=== PATIENT | male | born 1955 | race Caucasian/White ===

== ENCOUNTER 2017-11-30 06:45 | Day surgery (SDC) | payer BC ==
[2017-11-29 12:42] VITALS: BMI 32.4
[2017-11-30] MEDS ORDERED: ETOMIDATE 20 MG/10 ML AMPUL IVPUSH ONE (08:16)
[2017-11-30] MEDS ORDERED: LIDOCAINE HCL/PF 2% SDV 5ML VIAL ONE (08:16)
[2017-11-30] MEDS ORDERED: PROPOFOL 20 ML ONE ×2 (08:16)
[2017-11-30 08:50] VITALS: TEMP 97.6
[2017-11-30 09:44] VITALS: BP 143/75; PULSE 82
--- NOTE | 2017-12-04 14:17 | PATH ---
Surgical Pathology Report Patient Name: FAWN MADRID [facility]. Rec. #: [id number] /Age/Gender: 1955 (Age: 61) / M Account: [id number] Location: U-ENDOSCOPY Taken: 11/30/2017 Received: 11/30/2017 Reported: 12/04/2017 Physicians: Lyndsay Barrow M.D. Specimen(s) Received A: BX SECOND PORTION DUODENUM AND BULB B: BX GASTRIC ANTRUM C: RECTAL POLYP D: SIGMOID COLON POLYP Clinical History Gastric metaplasia, colon cancer screening Postoperative diagnosis: Gastritis, duodenitis, rectal and sigmoid polyps Final Diagnosis A. DUODENUM, SECOND PORTION AND BULB, BIOPSY: DUODENAL MUCOSA WITH MILD CHRONIC DUODENITIS. B. GASTRIC ANTRUM, BIOPSY: GASTRIC MUCOSA WITH MILD CHRONIC GASTRITIS AND LYMPHOID AGGREGATES. POSITIVE FOR INTESTINAL METAPLASIA. IMMUNOSTAIN IS NEGATIVE FOR H. PYLORI ORGANISMS. C. RECTAL POLYP, POLYPECTOMY: HYPERPLASTIC POLYP. D. SIGMOID COLON POLYP, POLYPECTOMY: TUBULAR ADENOMA. Electronically Signed Asim Jeter M.D. Gross Description A. Received in formalin, labeled "biopsy second portion of duodenum and bulb" are 3 mariscal, irregular portions of soft tissue averaging 0.3 cm. in greatest dimension. The specimens are submitted in toto in one cassette. B. Received in formalin, labeled "biopsy gastric antrum" are 6 mariscal, irregular portions of soft tissue ranging from 0.2-0.4 cm. in greatest dimension. The specimens are submitted in toto in one cassette. C. Received in formalin, labeled "biopsy rectal polyp" is a mariscal, irregular portion of soft tissue measuring 0.4 cm. in greatest dimension. The specimen is submitted in toto in one cassette. D. Received in formalin, labeled "biopsy sigmoid colon polyp" are 3 mariscal, irregular portions of soft tissue ranging from 0.1-0.4 cm. in greatest dimension. The specimens are submitted in toto in one cassette. 11/30/201711/30/2017
== END 2017-11-30 10:30 | disposition home or self-care (01) ==
LOC: JASU-ENDO 06:45
PROVIDERS: ATTEND Internal Medicine Gastroenterology
PROC: 0DBN8ZX Excision of Sigmoid Colon, Via Natural or Artificial Opening Endoscopic, Diagnostic (ICD-10-PCS; 2017-11-30)
PROC: 0DB98ZX Excision of Duodenum, Via Natural or Artificial Opening Endoscopic, Diagnostic (ICD-10-PCS; 2017-11-30)
PROC: 0DB68ZX Excision of Stomach, Via Natural or Artificial Opening Endoscopic, Diagnostic (ICD-10-PCS; 2017-11-30)
PROC: 0DBP8ZX Excision of Rectum, Via Natural or Artificial Opening Endoscopic, Diagnostic (ICD-10-PCS; principal; 2017-11-30 08:00)
DX: Z12.11 Encounter for screening for malignant neoplasm of colon (principal); K62.1 Rectal polyp; D12.5 Benign neoplasm of sigmoid colon; K29.70 Gastritis, unspecified, without bleeding; K29.80 Duodenitis without bleeding
CPT/HCPCS: 82962; 88305-TC; 88342-TC

== ENCOUNTER 2021-08-30 16:31 | Emergency (ER) | payer OTHER, BC ==
[2021-08-30 16:50] VITALS: BP 150/73; PULSE 74; TEMP 97.5; BMI 41.7
[2021-08-30] MEDS ORDERED: ACETAMINOPHEN 1000 MG/100 ML BAG IVPB ONE (16:51)
[2021-08-30] MEDS ORDERED: morphine CARPU-JECT 4 MG/1 ML DISP.SYRIN IVPUSH ONE (17:10)
[2021-08-30] MEDS ORDERED: morphine SULFATE 4 MG/ML VIAL ONE (17:32)
[2021-08-30] MEDS ORDERED: ACETAMINOPHEN INJECTION 100 ML IVPB ONE (17:33)
[2021-08-30 17:45] LABS: BASO % 0.2 % (0-2.0); EOS % 0.9 % (0-4.5); HEMATOCRIT 39.1 % (35.4-49); MCH 30.9 pg (25.7-33.7); MCHC 33.2 g/dl (32.0-35.9); MEAN CELL VOLUME 93.3 fl (80-96); MEAN PLT VOLUME 8.1 fl (7.5-11.1); MONO % 7.3 % (3.8-10.2); NEUT % 83.6 % (42.8-82.8); PLATELET COUNT 195 10^3/uL (134-434); RBC 4.19 M/mm3 (4.00-5.60); RDW 14.6 % (11.9-15.9); WHITE BLOOD COUNT 10.1 K/mm3 (4.0-10.0)
[2021-08-30 18:01] LABS: INR 1.02 (0.83-1.09); PROTHROMBIN TIME (PATIENT) 11.7 SEC (9.7-13.0)
[2021-08-30 18:03] LABS: ACTIVATED PTT 35.2 SECONDS (25.2-36.5)
[2021-08-30 18:09] LABS: CALCIUM 8.7 mg/dL (8.5-10.1)
[2021-08-30 18:10] LABS: ALBUMIN 3.5 g/dl (3.4-5.0); BLOOD UREA NITROGEN 21.3 mg/dL (7-18)
[2021-08-30 18:13] LABS: CREATININE 1.1 mg/dL (0.55-1.3)
[2021-08-30 18:15] LABS: BILIRUBIN,TOTAL 0.4 mg/dL (0.2-1); TOT PROT 7.1 g/dl (6.4-8.2)
== END 2021-08-30 19:02 | disposition home or self-care (01) ==
LOC: JER 16:31
PROC: 3E0333Z Introduction of Anti-inflammatory into Peripheral Vein, Percutaneous Approach (ICD-10-PCS; principal; 2021-08-30)
PROC: 3E033NZ Introduction of Analgesics, Hypnotics, Sedatives into Peripheral Vein, Percutaneous Approach (ICD-10-PCS; 2021-08-30)
DX: S42.202A Unspecified fracture of upper end of left humerus, initial encounter for closed fracture (principal); W01.0XXA Fall on same level from slipping, tripping and stumbling without subsequent striking against object, initial encounter
CPT/HCPCS: 36415; 70450-TC; 71101-TC-LT-FY; 72125-TC; 73030-TC-LT-FY; 73060-TC-LT-FY; 80053; 85025; 85610; 85730; 86850; 86900; 86901; 96374; 96375; 99285-25

== ENCOUNTER 2022-07-06 04:15 | Day surgery (SDC) | payer OTHER, BC ==
[2022-06-29 15:55] VITALS: BMI 31.0
[2022-07-06] MEDS ORDERED: HEPARIN NA (PORCINE) 5,000 UNITS/ML 1ML VIAL ONE ×2 (07:28→09:11)
[2022-07-06] MEDS ORDERED: LIDOCAINE HCL 1%, 10 MG/ML (20ML VIAL) ONE (07:29)
[2022-07-06] MEDS ORDERED: LIDOCAINE HCL/PF 2% SDV 5ML VIAL ONE (09:11)
[2022-07-06] MEDS ORDERED: PROPOFOL 40 ML ONE (09:11)
[2022-07-06] MEDS ORDERED: FENTANYL CITRATE/PF 50 MCG/ML VIAL ONE (09:11)
[2022-07-06] MEDS ORDERED: MIDAZOLAM HCL 2 MG/2 ML SINGLE DOSE VIAL ONE (09:12)
[2022-07-06] MEDS ORDERED: ceFAZolin SODIUM 1 GM VIAL ONE (09:33)
[2022-07-06] MEDS ORDERED: ceFAZolin SODIUM 1 GM VIAL IVPB ONE (09:34)
[2022-07-06] MEDS ORDERED: LIDOCAINE HCL 1%, 10 MG/ML (20ML VIAL) INF ONE ×2 (09:34)
[2022-07-06] MEDS ORDERED: CLOPIDOGREL BISULFATE 75 MG TABLET (FP) PO ONE (10:10)
[2022-07-06] MEDS ORDERED: ONDANSETRON 4 MG/2 ML VIAL IVPUSH PRN (10:17)
[2022-07-06] MEDS ORDERED: oxyCODONE HCL 5 MG TABLET PO PRN (10:17)
[2022-07-06] MEDS ORDERED: LACTATED RINGERS SOLUTION 1,000 ML IV SCH (10:30)
[2022-07-06 11:57] VITALS: RESP 18
[2022-07-06 13:52] VITALS: BP 137/60; PULSE 70; TEMP 97.6
== END 2022-07-06 14:00 | disposition home or self-care (01) ==
LOC: JASU-SURG 04:15
PROVIDERS: ATTEND Surgery Vascular Surgery
PROC: 047S3ZZ Dilation of Left Posterior Tibial Artery, Percutaneous Approach (ICD-10-PCS; 2022-07-06)
PROC: 047L3ZZ Dilation of Left Femoral Artery, Percutaneous Approach (ICD-10-PCS; principal; 2022-07-06 09:00)
DX: I73.9 Peripheral vascular disease, unspecified (principal); L97.929 Non-pressure chronic ulcer of unspecified part of left lower leg with unspecified severity
CPT/HCPCS: 37225; 37229; C1885; 76000-TC-FY; 82962; 94760; C1760; J1644

== ENCOUNTER 2024-02-08 04:55 | Day surgery (SDC) | payer OTHER, BC ==
[2024-02-05 12:53] VITALS: BMI 31.7
[2024-02-08 12:08] VITALS: RESP 18
[2024-02-08] MEDS: BUPIVACAINE HCL/PF 0.5% (5MG/ML) 10 ML VIAL PNB ONE (14:19)
[2024-02-08 15:07] VITALS: BP 144/70; PULSE 78; TEMP 98.4
== END 2024-02-08 15:30 | disposition home or self-care (01) ==
LOC: JASU-SURG 04:55
PROVIDERS: ATTEND Pain Medicine Pain Medicine
PROC: 3E0T33Z Introduction of Anti-inflammatory into Peripheral Nerves and Plexi, Percutaneous Approach (ICD-10-PCS; 2024-02-08)
PROC: 3E0T3BZ Introduction of Anesthetic Agent into Peripheral Nerves and Plexi, Percutaneous Approach (ICD-10-PCS; principal; 2024-02-08 13:00)
DX: M47.812 Spondylosis without myelopathy or radiculopathy, cervical region (principal)
CPT/HCPCS: 76000-TC-FY

== ENCOUNTER 2024-03-17 04:33 | Day surgery (SDC) | payer OTHER, BC ==
[2024-03-06 14:41] VITALS: BMI 34.4
[2024-03-17 12:09] VITALS: TEMP 98.3
[2024-03-17 12:25] VITALS: RESP 20
[2024-03-17 13:31] VITALS: BP 148/59; PULSE 76
== END 2024-03-17 13:22 | disposition home or self-care (01) ==
LOC: JASU-ENDO 04:33
PROVIDERS: ATTEND Internal Medicine Gastroenterology
PROC: 0DB98ZX Excision of Duodenum, Via Natural or Artificial Opening Endoscopic, Diagnostic (ICD-10-PCS; 2024-03-17)
PROC: 0DB78ZX Excision of Stomach, Pylorus, Via Natural or Artificial Opening Endoscopic, Diagnostic (ICD-10-PCS; 2024-03-17)
PROC: 0DB68ZX Excision of Stomach, Via Natural or Artificial Opening Endoscopic, Diagnostic (ICD-10-PCS; 2024-03-17)
PROC: 0DBL8ZX Excision of Transverse Colon, Via Natural or Artificial Opening Endoscopic, Diagnostic (ICD-10-PCS; principal; 2024-03-17 10:00)
DX: Z12.11 Encounter for screening for malignant neoplasm of colon (principal); D12.3 Benign neoplasm of transverse colon; K64.8 Other hemorrhoids; K57.30 Diverticulosis of large intestine without perforation or abscess without bleeding; K29.40 Chronic atrophic gastritis without bleeding; Z87.19 Personal history of other diseases of the digestive system
CPT/HCPCS: 82962; 88305-TC; 88342-TC

== ENCOUNTER 2024-09-08 05:56 | Day surgery (SDC) | payer OTHER, BC ==
[2024-09-02 13:13] VITALS: BMI 32.5
[2024-09-08] MEDS ORDERED: VANCOMYCIN 1,000 MG VIAL (RESTRICTED TO ID ONLY) ONE ×2 (07:20→11:23)
[2024-09-08] MEDS ORDERED: TRANEXAMIC ACID 1000 MG/10 ML VIAL ONE (07:20)
[2024-09-08] MEDS ORDERED: PROPOFOL 40 ML ONE (07:41)
[2024-09-08] MEDS ORDERED: SUCCINYLCHOLINE CHLORIDE 200 MG/10 ML SYRINGE ONE (07:41)
[2024-09-08] MEDS ORDERED: MIDAZOLAM HCL 2 MG/2 ML SINGLE DOSE VIAL ONE (07:42)
[2024-09-08] MEDS ORDERED: ROPIVACAINE HCL/PF 100 MG/20 ML VIAL ONE (07:45)
[2024-09-08] MEDS ORDERED: DEXAMETHASONE SOD PHOSPHATE 10 MG/1 ML VIAL ONE (07:45)
[2024-09-08] MEDS ORDERED: ROCURONIUM BROMIDE 50 MG/5 ML VIAL ONE (08:40)
[2024-09-08] MEDS ORDERED: ONDANSETRON 4 MG/2 ML VIAL IVPUSH PRN ×2 (09:16→12:11)
[2024-09-08] MEDS ORDERED: oxyCODONE HCL 5 MG TABLET PO PRN (09:16)
[2024-09-08] MEDS ORDERED: LACTATED RINGERS SOLUTION 1,000 ML IV SCH ×2 (09:30→12:15)
[2024-09-08] MEDS ORDERED: MAG HYDROX/AL HYDROX/SIMETH 30 ML UNIT-DOSE CUP PO PRN (12:11)
[2024-09-08] MEDS ORDERED: FAMOTIDINE 20 MG TABLET PO PRN (12:15)
[2024-09-08] MEDS: CEFAZOLIN 2 GM/D5W 2 GRAM/50 ML ML IVPB SCH (17:30)
[2024-09-08] MEDS: ACETAMINOPHEN 1000 MG/100 ML BAG IVPB PRN (18:19)
[2024-09-08] MEDS: FUROSEMIDE 40 MG/4 ML INJECTABLE VIAL IVPUSH ONE (18:52)
[2024-09-08] MEDS: VANCOMYCIN/WATER FOR INJ (PEG) 1,000 MG/200 ML BAG IVPB ONE (20:45)
[2024-09-08] MEDS ORDERED: INSULIN ASPART SLIDING SCALE (NOVOLOG) 1 VIAL SQ ONE (21:25)
[2024-09-08] MEDS: INSULIN (LEVEMIR) 100 UNITS/ML UNITS SQ SCH (21:35)
[2024-09-08] MEDS: DORZOLAMIDE HCL/TIMOLOL OPHTHALMIC SOLUTION 10 ML BOTTLE OU SCH (21:35)
[2024-09-08] MEDS: METOPROLOL TARTRATE 50 MG TABLET (FP) PO SCH (21:36)
[2024-09-08] MEDS: ATORVASTATIN CA 40 MG TABLET (FP) PO SCH (21:36)
[2024-09-08] MEDS: SENNOSIDES/DOCUSATE COMBO (SENNA PLUS) TABLET (UD) PO SCH (21:37)
[2024-09-08] MEDS: PRAMIPEXOLE DIHYDROCHLORIDE 0.25 MG TABLET PO SCH (21:37)
[2024-09-08] MEDS: GABAPENTIN 300 MG CAPSULE PO SCH (21:37)
[2024-09-08] MEDS: INSULIN ASPART SLIDING SCALE (NOVOLOG) 1 VIAL SQ SCH (21:37)
[2024-09-08] MEDS: BRIMONIDINE TARTRATE 0.2% OPHTHALMIC 5 ML BOTTLE OS SCH (21:50)
[2024-09-08] MEDS: METHAZOLAMIDE 50 MG TABLET PO SCH (21:50)
[2024-09-09] MEDS: ACETAMINOPHEN 1000 MG/100 ML BAG IVPB ONE (01:19)
[2024-09-09] MEDS ORDERED: INSULIN ASPART SLIDING SCALE (NOVOLOG) 1 VIAL SQ ONE (06:32)
[2024-09-09 09:23] LABS: ALBUMIN 3.3 g/dl (3.4-5.0); BASO % 0.2 % (0-2.0); BILIRUBIN,TOTAL 0.3 mg/dl (0.2-1); CALCIUM 8.4 mg/dl (8.5-10.1); CREATININE 1.3 mg/dl (0.6-1.3); HEMATOCRIT 31.5 % (35.4-49); HEMOGLOBIN 9.9 GM/dL (11.7-16.9); LYMPH % 4.1 % (8-40); MCH 27.3 pg (25.7-33.7); MCHC 31.4 g/dl (32.0-35.9); MEAN CELL VOLUME 86.7 fl (80-96); MEAN PLT VOLUME 8.4 fl (7.5-11.1); MONO % 11.1 % (3.8-10.2); NEUT % 84.6 % (42.8-82.8); PLATELET COUNT 200 10^3/uL (134-434); POTASSIUM 4.2 mmol/L (3.5-5.1); RBC 3.64 M/mm3 (4.00-5.60); RDW 16.4 % (11.9-15.9); TOT PROT 5.7 g/dl (6.4-8.2)
[2024-09-09] MEDS: PANTOPRAZOLE 40 MG TABLET PO SCH (09:35)
[2024-09-09] MEDS: LOSARTAN POTASSIUM 50 MG TABLET PO SCH (09:35)
[2024-09-09] MEDS: EMPAGLIFLOZIN (JARDIANCE) 10 MG TABLET PO SCH (09:35)
[2024-09-09] MEDS: MULTIVITAMINS (DAILY MVI) TABLET (FP) PO SCH (09:35)
[2024-09-09] MEDS: ASPIRIN COATED 81 MG TABLET.EC PO SCH (09:35)
[2024-09-09] MEDS: PILOCARPINE 1% OPHTHALMIC SOLUTION 15 ML BOTTLE OS SCH (09:43)
[2024-09-09] MEDS: PATIENT'S OWN MEDICATION (NON-FORMULARY) (Brimonidine Tartrate/Timolol [Brimonidine-Timolo OS SCH (09:50)
[2024-09-09] MEDS ORDERED: PILOCARPINE 1% OPHTHALMIC SOLUTION 15 ML BOTTLE OS SCH (10:00)
[2024-09-09] MEDS ORDERED: NIFEdipine E.R. 30 MG TABLET PO SCH (10:00)
[2024-09-09] MEDS ORDERED: PILOCARPINE 1% OS SCH (10:00)
[2024-09-09] MEDS: amLODIPine BESYLATE 5 MG TABLET (FP) PO SCH (11:49)
[2024-09-09] MEDS: FUROSEMIDE 40 MG/4 ML INJECTABLE VIAL IVPUSH ONE (12:15)
[2024-09-09] MEDS: ENOXAPARIN NA (PORCINE) 100 MG/1 ML DISP.SYRIN SQ SCH (13:51)
[2024-09-09] MEDS ORDERED: ACETAMINOPHEN 1000 MG/100 ML BAG IVPB PRN (16:54)
[2024-09-09] MEDS ORDERED: MECLIZINE HCL 12.5 MG TABLET PO PRN (16:58)
[2024-09-09] MEDS: oxyCODONE HCL 5 MG TABLET PO PRN (18:54)
[2024-09-09] MEDS: GABAPENTIN 100 MG CAPSULE PO SCH (21:58)
[2024-09-09] MEDS: PATIENT'S OWN MEDICATION (NON-FORMULARY) (Linagliptin/Metformin Hcl [Jentadueto 2.5 Mg-100 PO SCH (23:32)
[2024-09-10 08:53] LABS: CALCIUM 8.6 mg/dl (8.5-10.1); CREATININE 1.3 mg/dl (0.6-1.3); POTASSIUM 3.5 mmol/L (3.5-5.1)
[2024-09-10] MEDS: ENOXAPARIN NA (PORCINE) 40 MG/0.4 ML DISP.SYRIN SQ SCH (09:56)
[2024-09-10 11:06] LABS: BASO % 0.1 % (0-2.0); EOS % 0.2 % (0-4.5); HEMATOCRIT 29.3 % (35.4-49); HEMOGLOBIN 9.1 GM/dL (11.7-16.9); LYMPH % 5.3 % (8-40); MCH 27.1 pg (25.7-33.7); MEAN CELL VOLUME 87.6 fl (80-96); MONO % 12.9 % (3.8-10.2); NEUT % 81.5 % (42.8-82.8); PLATELET COUNT 205 10^3/uL (134-434); RBC 3.35 M/mm3 (4.00-5.60); RDW 16.7 % (11.9-15.9); WHITE BLOOD COUNT 12.1 K/mm3 (4.0-10.0)
[2024-09-10] MEDS: POLYETHYLENE GLYCOL (HEALTHYLAX) 3350 17 GM PACKET PO SCH (11:43)
[2024-09-10 13:03] VITALS: BP 127/69; PULSE 84; RESP 16; TEMP 98.1
[2024-09-10] MEDS: CEPHALEXIN MONOHYDRATE 500 MG CAPSULE (UD) PO ONE (15:19)
== END 2024-09-10 15:43 | disposition home or self-care (01) ==
LOC: FASU 05:56 → FASUSAT 05:56 → FM/S 14:31 → FASUSAT 09-10 15:43
PROVIDERS: ATTEND Orthopaedic Surgery
PROC: 0LS40ZZ Reposition Left Upper Arm Tendon, Open Approach (ICD-10-PCS; 2024-09-08)
PROC: 0RRK00Z Replacement of Left Shoulder Joint with Reverse Ball and Socket Synthetic Substitute, Open Approach (ICD-10-PCS; principal; 2024-09-08 08:49)
DX: M19.012 Primary osteoarthritis, left shoulder (principal); M75.102 Unspecified rotator cuff tear or rupture of left shoulder, not specified as traumatic; M75.22 Bicipital tendinitis, left shoulder; S42.292P Other displaced fracture of upper end of left humerus, subsequent encounter for fracture with malunion; X58.XXXD Exposure to other specified factors, subsequent encounter
CPT/HCPCS: 23430; 23472; C1776; 36415; 71045-TC-FY; 71275-TC; 73030-TC-LT-FY; 80048; 80053; 80061; 82962; 83036; 83880; 84439; 84443; 84484; 85025; 85379; 88304-TC; 88305-TC; 88311-TC; 88342-TC; 93005; 93306-TC; 94660; 94760; 97116-GP; 97162-GP; C1713; C1757; J0131; J1100; Q9967

== ENCOUNTER 2024-10-22 16:28 | Emergency (ER) | payer OTHER, BC ==
[2024-10-22 16:54] VITALS: BP 134/61; TEMP 98.8; BMI 31.7
[2024-10-22] MEDS ORDERED: ACETAMINOPHEN 500 MG TABLET (FP) ONE (17:29)
[2024-10-22] MEDS ORDERED: DIPHTH,PERTUSS(ACELL),TET 0.5 ML DISP.SYRIN IM ONE (17:31)
[2024-10-22] MEDS: DIPHTH,PERTUSS(ACELL),TET 0.5 ML DISP.SYRIN IM ONE (18:00)
[2024-10-22] MEDS: ACETAMINOPHEN 500 MG TABLET (FP) PO ONE (18:00)
[2024-10-22 19:13] VITALS: PULSE 98; RESP 16
== END 2024-10-22 19:00 | disposition home or self-care (01) ==
LOC: FER 16:28
PROC: 3E0234Z Introduction of Serum, Toxoid and Vaccine into Muscle, Percutaneous Approach (ICD-10-PCS; principal; 2024-10-22)
DX: S00.81XA Abrasion of other part of head, initial encounter (principal); S80.211A Abrasion, right knee, initial encounter; S81.002A Unspecified open wound, left knee, initial encounter; R07.89 Other chest pain; M54.2 Cervicalgia; Z23 Encounter for immunization; W01.0XXA Fall on same level from slipping, tripping and stumbling without subsequent striking against object, initial encounter; Y93.01 Activity, walking, marching and hiking
CPT/HCPCS: 70450-TC; 71101-TC-RT-FY; 72125-TC; 73562-TC-LT-FY; 73562-TC-RT-FY; 90471; 90715; 99285-25

== ENCOUNTER 2024-10-31 14:19 | Inpatient (IN) | payer OTHER, BC ==
[2024-10-31 15:36] LABS: ABSOLUTE IMMATURE GRANULOCYTES 0.09 x10^3/uL (0.0-0.031); BASOPHILS # 0.04 x10^3/uL (0.01-0.08); EOSINOPHIL % 0.1 % (0.8-7.0); EOSINOPHILS # 0.02 x10^3/uL (0.04-0.54); HEMATOCRIT 38.4 % (40.1-51.0); HEMOGLOBIN 11.4 g/dL (13.7-17.5); MCHC 29.7 g/dl (32.3-36.5); MEAN CELL VOLUME 87.9 fl (79.0-92.2); MEAN PLT VOLUME 9.2 fl (9.4-12.4); MONOCYTE # 0.79 x10^3/uL (0.30-0.82); MONOCYTE % 5.7 % (5.3-12.2); PLATELET COUNT 364 x10^3/uL (163-337); RDW 15.6 % (12.2-16.4)
[2024-10-31 16:21] LABS: ALBUMIN 2.7 g/dl (3.4-5.0); BLOOD UREA NITROGEN 21.1 mg/dL (7-18); CALCIUM 9.5 mg/dL (8.5-10.1)
[2024-10-31 16:24] LABS: ERYTHROCYTE SEDIMENTATION RATE 91 mm/hr (0-20)
[2024-10-31 16:26] LABS: BILIRUBIN,TOTAL 0.3 mg/dL (0.2-1); TOT PROT 7.4 g/dl (6.4-8.2)
[2024-10-31] MEDS ORDERED: CEFTRIAXONE 2 GM-D5W BAG 2 GM/50 ML BAG IVPB ONE (17:07)
[2024-10-31] MEDS: CEFTRIAXONE 2 GM in DEXTROSE 5%-WATER - 100 ML IVPB ONE (17:16)
[2024-10-31] MEDS ORDERED: MORPHINE SULFATE 2 MG/ML SYRINGE IVPUSH PRN (18:09)
[2024-10-31] MEDS: LACTATED RINGERS SOLUTION 1,000 ML/1,000 ML INFUS.BAG IV SCH (18:26)
[2024-10-31 19:01] LABS: MAGNESIUM 1.6 mg/dL (1.8-2.4)
[2024-10-31 19:05] LABS: PHOSPHOROUS 3.4 mg/dL (2.5-4.9)
[2024-10-31] MEDS: PRAMIPEXOLE DIHYDROCHLORIDE 0.25 MG TABLET PO SCH (21:32)
[2024-10-31] MEDS: FAMOTIDINE 20 MG TABLET PO SCH (21:32)
[2024-10-31] MEDS: ATORVASTATIN CA 40 MG TABLET (FP) PO SCH (21:33)
[2024-10-31] MEDS: INSULIN ASPART SLIDING SCALE (NOVOLOG) 1 VIAL SQ SCH (21:33)
[2024-10-31] MEDS: ACETAMINOPHEN 325 MG TABLET (FP) PO PRN (21:35)
[2024-10-31] MEDS: MAGNESIUM 1GM/D5W 100ML - 100 ML IVPB IVPB ONE (21:48)
[2024-10-31] MEDS ORDERED: METHAZOLAMIDE 50 MG TABLET PO SCH ×2 (22:00)
[2024-10-31] MEDS ORDERED: MAGNESIUM 1GM/D5W 100ML - 100 ML IVPB IVPB SCH (22:00)
[2024-10-31 22:25] VITALS: BMI 29.5
[2024-11-01] MEDS ORDERED: PILOCARPINE HCL OS SCH (06:00)
[2024-11-01] MEDS: BRIMONIDINE TARTRATE 0.2% OPHTHALMIC 5 ML BOTTLE OS SCH (06:34)
[2024-11-01 08:19] LABS: HEMOGLOBIN 9.5 g/dL (13.7-17.5); MCHC 29.7 g/dl (32.3-36.5); MEAN CELL VOLUME 88.2 fl (79.0-92.2); MEAN PLT VOLUME 8.7 fl (9.4-12.4); PLATELET COUNT 311 x10^3/uL (163-337); RDW 15.7 % (12.2-16.4)
[2024-11-01 08:42] LABS: POTASSIUM 3.5 mmol/L (3.5-5.1)
[2024-11-01 08:45] LABS: BLOOD UREA NITROGEN 18.4 mg/dL (7-18); CALCIUM 8.8 mg/dL (8.5-10.1)
[2024-11-01] MEDS: DORZOLAMIDE HCL/TIMOLOL OPHTHALMIC SOLUTION 10 ML BOTTLE OU SCH (09:37)
[2024-11-01] MEDS: CEFTRIAXONE 1 G/50 ML PREMIX 50 ML IVPB SCH (09:37)
[2024-11-01] MEDS: MAGNESIUM OXIDE 400 MG TABLET (FP) PO ONE (09:38)
[2024-11-01] MEDS: NIFEdipine E.R. 30 MG TABLET PO SCH (09:38)
[2024-11-01] MEDS: LOSARTAN POTASSIUM 50 MG TABLET PO SCH (13:03)
[2024-11-01] MEDS: ENOXAPARIN NA (PORCINE) 40 MG/0.4 ML DISP.SYRIN SQ SCH (13:03)
[2024-11-01] MEDS: EMPAGLIFLOZIN (JARDIANCE) 10 MG TABLET PO SCH (15:50)
[2024-11-01] MEDS: VANCOMYCIN PREMIX 1.5 GM 1,500 MG/300 ML BAG IVPB SCH (15:53)
[2024-11-01] MEDS: metFORMIN HCL 500 MG TABLET (FP) PO SCH (17:25)
[2024-11-02] MEDS: POLYETHYLENE GLYCOL (HEALTHYLAX) 3350 17 GM PACKET PO ONE (06:07)
[2024-11-02 08:14] LABS: BASOPHILS # 0.03 x10^3/uL (0.01-0.08); EOSINOPHIL % 1.1 % (0.8-7.0); EOSINOPHILS # 0.14 x10^3/uL (0.04-0.54); HEMATOCRIT 32.9 % (40.1-51.0); MCHC 30.4 g/dl (32.3-36.5); MEAN CELL VOLUME 86.8 fl (79.0-92.2); MEAN PLT VOLUME 9.1 fl (9.4-12.4); MONOCYTE # 0.79 x10^3/uL (0.30-0.82); MONOCYTE % 6.1 % (5.3-12.2); PLATELET COUNT 355 x10^3/uL (163-337); RDW 15.5 % (12.2-16.4)
[2024-11-02 08:36] LABS: CHLORIDE 108 mmol/L (98-107); POTASSIUM 3.6 mmol/L (3.5-5.1); SODIUM 139 mmol/L (136-145)
[2024-11-02 08:41] LABS: ALBUMIN 2.2 g/dl (3.4-5.0); ANION GAP 10 mmol/L (4-13); BLOOD UREA NITROGEN 15.9 mg/dL (7-18); CALCIUM 8.9 mg/dL (8.5-10.1); CO2 21 mmol/L (21-32); GLUCOSE,RANDOM 196 mg/dL (74-106)
[2024-11-02 08:42] LABS: MAGNESIUM 1.6 mg/dL (1.8-2.4)
[2024-11-02 08:44] LABS: CREATININE 0.8 mg/dL (0.55-1.3); PHOSPHOROUS 2.8 mg/dL (2.5-4.9); SGOT/AST 7 U/L (15-37); SGPT/ALT < 6 U/L (13-61)
[2024-11-02 08:45] LABS: BILIRUBIN,TOTAL 0.3 mg/dL (0.2-1)
[2024-11-02 08:47] LABS: ALK PHOS 74 U/L (45-117)
[2024-11-02] MEDS: POLYETHYLENE GLYCOL (HEALTHYLAX) 3350 17 GM PACKET PO SCH (09:18)
[2024-11-02] MEDS ORDERED: EMPAGLIFLOZIN (JARDIANCE) 10 MG TABLET PO SCH (10:00)
[2024-11-02] MEDS: PIPERACILLIN/TAZOB 3.375 GM 3.375 GM in DEXTROSE 5%-WATER - 50 ML IVPB SCH (15:00)
[2024-11-02] MEDS: MELATONIN 5 MG TABLETS PO PRN (22:55)
[2024-11-03] MEDS ORDERED: INSULIN (NOVOLOG) ASPART 100 UNITS/ML 10ML VIAL ONE (06:38)
[2024-11-03 08:33] LABS: ABSOLUTE IMMATURE GRANULOCYTES 0.09 x10^3/uL (0.0-0.031); BASOPHILS # 0.04 x10^3/uL (0.01-0.08); EOSINOPHIL % 1.5 % (0.8-7.0); EOSINOPHILS # 0.21 x10^3/uL (0.04-0.54); HEMATOCRIT 34.9 % (40.1-51.0); HEMOGLOBIN 10.3 g/dL (13.7-17.5); MCHC 29.5 g/dl (32.3-36.5); MEAN PLT VOLUME 9.2 fl (9.4-12.4); MONOCYTE # 0.89 x10^3/uL (0.30-0.82); MONOCYTE % 6.5 % (5.3-12.2); PLATELET COUNT 375 x10^3/uL (163-337); RDW 15.6 % (12.2-16.4)
[2024-11-03 09:04] LABS: CHLORIDE 107 mmol/L (98-107); POTASSIUM 3.9 mmol/L (3.5-5.1); SODIUM 140 mmol/L (136-145)
[2024-11-03 09:23] LABS: ALBUMIN 2.1 g/dl (3.4-5.0); ANION GAP 10 mmol/L (4-13); CO2 23 mmol/L (21-32)
[2024-11-03 09:24] LABS: BLOOD UREA NITROGEN 13.3 mg/dL (7-18); GLUCOSE,RANDOM 147 mg/dL (74-106); MAGNESIUM 1.7 mg/dL (1.8-2.4)
[2024-11-03 09:26] LABS: PHOSPHOROUS 3.7 mg/dL (2.5-4.9); SGPT/ALT < 6 U/L (13-61)
[2024-11-03 09:28] LABS: BILIRUBIN,TOTAL 0.3 mg/dL (0.2-1); CREATININE 0.8 mg/dL (0.55-1.3); SGOT/AST 10 U/L (15-37)
[2024-11-03 09:30] LABS: ALK PHOS 75 U/L (45-117)
[2024-11-04] MEDS: EMPAGLIFLOZIN (JARDIANCE) 10 MG TABLET PO SCH (07:08)
[2024-11-04 09:38] LABS: HEMATOCRIT 35.6 % (40.1-51.0); HEMOGLOBIN 10.5 g/dL (13.7-17.5); MCHC 29.5 g/dl (32.3-36.5); MEAN CELL VOLUME 87.3 fl (79.0-92.2); PLATELET COUNT 402 x10^3/uL (163-337); RDW 15.6 % (12.2-16.4)
[2024-11-04 10:04] LABS: CHLORIDE 104 mmol/L (98-107); POTASSIUM 4.1 mmol/L (3.5-5.1); SODIUM 138 mmol/L (136-145)
[2024-11-04 10:26] LABS: ALBUMIN 2.2 g/dl (3.4-5.0); ANION GAP 12 mmol/L (4-13); BLOOD UREA NITROGEN 15.5 mg/dL (7-18); CALCIUM 8.9 mg/dL (8.5-10.1); CO2 22 mmol/L (21-32); GLUCOSE,RANDOM 139 mg/dL (74-106); MAGNESIUM 1.8 mg/dL (1.8-2.4)
[2024-11-04 10:28] LABS: CREATININE 0.8 mg/dL (0.55-1.3); PHOSPHOROUS 3.6 mg/dL (2.5-4.9); SGPT/ALT < 6 U/L (13-61)
[2024-11-04 10:29] LABS: TOT PROT 6.2 g/dl (6.4-8.2)
[2024-11-04 10:30] LABS: SGOT/AST 14 U/L (15-37)
[2024-11-04 10:31] LABS: ALK PHOS 75 U/L (45-117)
[2024-11-04 10:32] LABS: BILIRUBIN,TOTAL 0.3 mg/dL (0.2-1)
[2024-11-04] MEDS ORDERED: KETOROLAC TROMETHAMINE 15 MG/ML VIAL IVPUSH PRN (17:29)
[2024-11-04] MEDS ORDERED: traMADol HCL 50 MG TABLET PO PRN (18:56)
[2024-11-05] MEDS: ceFAZolin SODIUM 1 GM VIAL IVPB ONE
[2024-11-05] MEDS ORDERED: INSULIN (NOVOLOG) ASPART 100 UNITS/ML 10ML VIAL ONE (06:47)
[2024-11-05] MEDS ORDERED: LIDOCAINE HCL 1%, 10 MG/ML (20ML VIAL) ONE (07:03)
[2024-11-05] MEDS ORDERED: DEXAMETHASONE SOD PHOSPHATE 4 MG/1 ML VIAL ONE (07:03)
[2024-11-05] MEDS ORDERED: POVIDONE-IODINE OINTMENT 10% - 28.4 GM TUBE ONE (07:03)
[2024-11-05] MEDS ORDERED: BUPIVACAINE HCL/PF 0.5% (5MG/ML) 10 ML VIAL ONE (07:04)
[2024-11-05] MEDS ORDERED: LIDOCAINE HCL 2% 100 MG/5 ML DISP.SYRIN ONE (07:34)
[2024-11-05] MEDS ORDERED: PROPOFOL 20 ML ONE (07:34)
[2024-11-05] MEDS ORDERED: MIDAZOLAM HCL 2 MG/2 ML SINGLE DOSE VIAL ONE (07:34)
[2024-11-05] MEDS: BUPIVACAINE HCL/PF 0.5% (5 MG/ML) 30 ML VIAL IJ ONE ×3 (07:38)
[2024-11-05] MEDS: LIDOCAINE HCL 1%, 10 MG/ML (20ML VIAL) INF ONE ×3 (07:38)
[2024-11-05] MEDS ORDERED: ONDANSETRON 4 MG/2 ML VIAL IVPUSH PRN ×2 (07:53→08:11)
[2024-11-05] MEDS ORDERED: KETOROLAC TROMETHAMINE 15 MG/ML VIAL IVPUSH PRN (08:11)
[2024-11-05] MEDS: LACTATED RINGERS SOLUTION 1,000 ML IV SCH ×2 (08:22→08:42)
[2024-11-05] MEDS ORDERED: TAMSULOSIN HCL 0.4 MG CAP PO SCH (08:30)
[2024-11-05] MEDS: ACETAMINOPHEN 325 MG TABLET (FP) PO PRN (09:30)
[2024-11-05] MEDS: LOSARTAN POTASSIUM 50 MG TABLET PO SCH (09:30)
[2024-11-05] MEDS: POLYETHYLENE GLYCOL (HEALTHYLAX) 3350 17 GM PACKET PO SCH (09:31)
[2024-11-05] MEDS: NIFEdipine E.R. 30 MG TABLET PO SCH (09:31)
[2024-11-05] MEDS: PRAMIPEXOLE DIHYDROCHLORIDE 0.25 MG TABLET PO SCH (09:31)
[2024-11-05] MEDS: TAMSULOSIN HCL 0.4 MG CAP PO SCH (09:31)
[2024-11-05] MEDS: DORZOLAMIDE HCL/TIMOLOL OPHTHALMIC SOLUTION 10 ML BOTTLE OU SCH (09:31)
[2024-11-05] MEDS: FAMOTIDINE 20 MG TABLET PO SCH (09:31)
[2024-11-05 10:11] LABS: HEMATOCRIT 35.6 % (40.1-51.0); HEMOGLOBIN 10.9 g/dL (13.7-17.5); MCHC 30.6 g/dl (32.3-36.5); MEAN CELL VOLUME 85.8 fl (79.0-92.2); MEAN PLT VOLUME 8.4 fl (9.4-12.4); PLATELET COUNT 370 x10^3/uL (163-337); RDW 15.6 % (12.2-16.4)
[2024-11-05 10:51] LABS: ALBUMIN 2.2 g/dl (3.4-5.0); CALCIUM 8.7 mg/dL (8.5-10.1)
[2024-11-05 10:52] LABS: BLOOD UREA NITROGEN 17.4 mg/dL (7-18); MAGNESIUM 1.8 mg/dL (1.8-2.4)
[2024-11-05 10:56] LABS: BILIRUBIN,TOTAL 0.3 mg/dL (0.2-1); PHOSPHOROUS 3.4 mg/dL (2.5-4.9); TOT PROT 6.3 g/dl (6.4-8.2)
[2024-11-05 10:58] LABS: CREATININE 0.8 mg/dL (0.55-1.3)
[2024-11-05] MEDS: INSULIN ASPART SLIDING SCALE (NOVOLOG) 1 VIAL SQ SCH (12:03)
[2024-11-05] MEDS: PIPERACILLIN/TAZOB 3.375 GM 50 ML IVPB SCH (15:00)
[2024-11-05] MEDS: BRIMONIDINE TARTRATE 0.2% OPHTHALMIC 5 ML BOTTLE OS SCH (15:00)
[2024-11-05] MEDS: ATORVASTATIN CA 40 MG TABLET (FP) PO SCH (21:41)
[2024-11-05] MEDS: MELATONIN 5 MG TABLETS PO PRN (22:57)
[2024-11-06 08:38] LABS: HEMATOCRIT 33.5 % (40.1-51.0); HEMOGLOBIN 10.1 g/dL (13.7-17.5); MCHC 30.1 g/dl (32.3-36.5); MEAN CELL VOLUME 86.3 fl (79.0-92.2); PLATELET COUNT 352 x10^3/uL (163-337); RDW 15.6 % (12.2-16.4)
[2024-11-06 09:19] LABS: POTASSIUM 3.9 mmol/L (3.5-5.1)
[2024-11-06 09:29] LABS: CALCIUM 8.9 mg/dL (8.5-10.1)
[2024-11-06 09:30] LABS: MAGNESIUM 1.9 mg/dL (1.8-2.4)
[2024-11-06 09:32] LABS: BLOOD UREA NITROGEN 18.2 mg/dL (7-18)
[2024-11-06 09:33] LABS: CREATININE 0.9 mg/dL (0.55-1.3)
[2024-11-06 09:34] LABS: BILIRUBIN,TOTAL 0.3 mg/dL (0.2-1); TOT PROT 5.9 g/dl (6.4-8.2)
[2024-11-06 09:35] LABS: PHOSPHOROUS 3.4 mg/dL (2.5-4.9)
[2024-11-06] MEDS: ACETAMINOPHEN 325 MG TABLET (FP) PO SCH (20:30)
[2024-11-06] MEDS: INSULIN GLARGINE (LANTUS) 100 UNITS/ML UNITS SQ SCH (21:17)
[2024-11-07] MEDS: metFORMIN HCL 500 MG TABLET (FP) PO SCH (06:24)
[2024-11-07 08:46] LABS: HEMATOCRIT 33.9 % (40.1-51.0); HEMOGLOBIN 10.3 g/dL (13.7-17.5); MCHC 30.4 g/dl (32.3-36.5); MEAN CELL VOLUME 85.6 fl (79.0-92.2); MEAN PLT VOLUME 9.3 fl (9.4-12.4); PLATELET COUNT 365 x10^3/uL (163-337); RDW 15.4 % (12.2-16.4)
[2024-11-07 09:21] LABS: POTASSIUM 3.8 mmol/L (3.5-5.1)
[2024-11-07 09:55] LABS: BILIRUBIN,TOTAL 0.3 mg/dL (0.2-1)
[2024-11-07 09:56] LABS: BLOOD UREA NITROGEN 14.5 mg/dL (7-18)
[2024-11-07 09:57] LABS: CALCIUM 8.8 mg/dL (8.5-10.1); MAGNESIUM 1.7 mg/dL (1.8-2.4)
[2024-11-07 09:59] LABS: CREATININE 0.8 mg/dL (0.55-1.3); PHOSPHOROUS 3.1 mg/dL (2.5-4.9)
[2024-11-07] MEDS: ENOXAPARIN NA (PORCINE) 40 MG/0.4 ML DISP.SYRIN SQ SCH (10:29)
[2024-11-07] MEDS: MAGNESIUM SULFATE IN WATER 2 GM/50 ML IVPB IVPB ONE (12:33)
[2024-11-07] MEDS: FAMOTIDINE 20 MG TABLET PO ONE (14:36)
[2024-11-07] MEDS: VANCOMYCIN 1 GM PREMIX (F) 1 GM/200 ML BAG IVPB SCH (14:37)
[2024-11-07] MEDS: PILOCARPINE HCL OS SCH (16:05)
[2024-11-07] MEDS ORDERED: ENOXAPARIN NA (PORCINE) 40 MG/0.4 ML DISP.SYRIN SQ SCH (22:00)
[2024-11-07] MEDS: METHAZOLAMIDE 50 MG PO SCH (22:21)
[2024-11-07] MEDS: ENOXAPARIN NA (PORCINE) 100 MG/1 ML DISP.SYRIN SQ SCH (22:21)
[2024-11-08] MEDS ORDERED: ENOXAPARIN NA (PORCINE) 40 MG/0.4 ML DISP.SYRIN SQ SCH (10:00)
[2024-11-08 10:04] LABS: HEMATOCRIT 35.4 % (40.1-51.0); HEMOGLOBIN 10.4 g/dL (13.7-17.5); MCHC 29.4 g/dl (32.3-36.5); MEAN CELL VOLUME 88.3 fl (79.0-92.2); MEAN PLT VOLUME 9.5 fl (9.4-12.4); PLATELET COUNT 385 x10^3/uL (163-337); RDW 15.5 % (12.2-16.4)
[2024-11-08 10:44] LABS: CALCIUM 8.6 mg/dL (8.5-10.1); MAGNESIUM 2.1 mg/dL (1.8-2.4)
[2024-11-08 10:45] LABS: BLOOD UREA NITROGEN 14.3 mg/dL (7-18)
[2024-11-08 10:47] LABS: CREATININE 0.8 mg/dL (0.55-1.3); PHOSPHOROUS 3.3 mg/dL (2.5-4.9)
[2024-11-08 10:49] LABS: BILIRUBIN,TOTAL 0.4 mg/dL (0.2-1); TOT PROT 6.2 g/dl (6.4-8.2)
[2024-11-08] MEDS ORDERED: INSULIN (NOVOLOG) ASPART 100 UNITS/ML 10ML VIAL ONE (22:05)
[2024-11-09 09:09] LABS: HEMATOCRIT 35.8 % (40.1-51.0); HEMOGLOBIN 10.3 g/dL (13.7-17.5); INR 1.2 (0.83-1.09); MCHC 28.8 g/dl (32.3-36.5); MEAN PLT VOLUME 9.4 fl (9.4-12.4); PLATELET COUNT 416 x10^3/uL (163-337); PROTHROMBIN TIME (PATIENT) 13.2 SEC (9.7-13.0); RDW 15.4 % (12.2-16.4)
[2024-11-09 09:37] LABS: ALBUMIN 1.9 g/dl (3.4-5.0)
[2024-11-09 09:38] LABS: BLOOD UREA NITROGEN 15.9 mg/dL (7-18); CALCIUM 8.9 mg/dL (8.5-10.1)
[2024-11-09 09:41] LABS: CREATININE 0.9 mg/dL (0.55-1.3); MAGNESIUM 1.9 mg/dL (1.8-2.4); PHOSPHOROUS 3.2 mg/dL (2.5-4.9)
[2024-11-09 09:43] LABS: BILIRUBIN,TOTAL 0.2 mg/dL (0.2-1)
[2024-11-09] MEDS ORDERED: INSULIN (NOVOLOG) ASPART 100 UNITS/ML 10ML VIAL ONE (11:16)
[2024-11-10] MEDS: VANCOMYCIN/WATER FOR INJ (PEG) 750 MG/150 ML BAG IVPB SCH (00:37)
[2024-11-10 09:12] LABS: HEMATOCRIT 36.4 % (40.1-51.0); HEMOGLOBIN 10.6 g/dL (13.7-17.5); INR 1.18 (0.83-1.09); MCHC 29.1 g/dl (32.3-36.5); MEAN CELL VOLUME 88.8 fl (79.0-92.2); MEAN PLT VOLUME 9.3 fl (9.4-12.4); PLATELET COUNT 423 x10^3/uL (163-337); PROTHROMBIN TIME (PATIENT) 12.9 SEC (9.7-13.0); RDW 15.5 % (12.2-16.4)
[2024-11-10 09:24] LABS: POTASSIUM 4.4 mmol/L (3.5-5.1)
[2024-11-10 09:29] LABS: CREATININE 0.9 mg/dL (0.55-1.3)
[2024-11-10 09:31] LABS: BILIRUBIN,TOTAL 0.3 mg/dL (0.2-1); TOT PROT 6.1 g/dl (6.4-8.2)
[2024-11-10 09:42] LABS: CALCIUM 8.9 mg/dL (8.5-10.1)
[2024-11-10] MEDS: DEXTROSE 5%-0.45% SALINE 1,000 ML IV SCH ×2 (13:33→21:19)
[2024-11-10] MEDS ORDERED: LIDOCAINE HCL 1%, 10 MG/ML (20ML VIAL) ONE (14:59)
[2024-11-10] MEDS ORDERED: HEPARIN NA (PORCINE) 5,000 UNITS/ML 1ML VIAL ONE (14:59)
[2024-11-10] MEDS ORDERED: MIDAZOLAM HCL 2 MG/2 ML SINGLE DOSE VIAL ONE (18:27)
[2024-11-10] MEDS: LACTATED RINGERS SOLUTION 1,000 ML IV SCH (18:36)
[2024-11-10] MEDS: LIDOCAINE HCL 1%, 10 MG/ML (50 mL VIAL) INF ONE (19:25)
[2024-11-10] MEDS ORDERED: CLOPIDOGREL BISULFATE 75 MG TABLET (FP) ONE (20:00)
[2024-11-10] MEDS: CLOPIDOGREL BISULFATE 75 MG TABLET (FP) PO SCH (20:11)
[2024-11-10] MEDS: PIPERACILLIN/TAZOB 3.375 GM 50 ML IVPB SCH (21:17)
[2024-11-10] MEDS: FAMOTIDINE 20 MG TABLET PO SCH (21:18)
[2024-11-10] MEDS: PRAMIPEXOLE DIHYDROCHLORIDE 0.25 MG TABLET PO SCH (21:18)
[2024-11-10] MEDS: ATORVASTATIN CA 40 MG TABLET (FP) PO SCH (21:18)
[2024-11-10] MEDS: DORZOLAMIDE HCL/TIMOLOL OPHTHALMIC SOLUTION 10 ML BOTTLE OU SCH (21:20)
[2024-11-10] MEDS: BRIMONIDINE TARTRATE 0.2% OPHTHALMIC 5 ML BOTTLE OS SCH (21:20)
[2024-11-10] MEDS: INSULIN ASPART SLIDING SCALE (NOVOLOG) 1 VIAL SQ SCH (21:28)
[2024-11-10] MEDS: INSULIN GLARGINE (LANTUS) 100 UNITS/ML UNITS SQ SCH (22:21)
[2024-11-10] MEDS: INSULIN GLARGINE (LANTUS) 100 UNITS/ML UNITS SQ ONE (22:30)
[2024-11-11] MEDS: VANCOMYCIN/WATER FOR INJ (PEG) 750 MG/150 ML BAG IVPB SCH (00:56)
[2024-11-11] MEDS: ACETAMINOPHEN 325 MG TABLET (FP) PO SCH (05:47)
[2024-11-11] MEDS: TAMSULOSIN HCL 0.4 MG CAP PO SCH (08:18)
[2024-11-11 09:02] LABS: HEMATOCRIT 32.5 % (40.1-51.0); HEMOGLOBIN 9.5 g/dL (13.7-17.5); MCHC 29.2 g/dl (32.3-36.5); MEAN CELL VOLUME 88.8 fl (79.0-92.2); MEAN PLT VOLUME 9.2 fl (9.4-12.4); PLATELET COUNT 369 x10^3/uL (163-337); RDW 15.5 % (12.2-16.4)
[2024-11-11 09:23] LABS: POTASSIUM 3.8 mmol/L (3.5-5.1)
[2024-11-11 09:39] LABS: ALBUMIN 1.8 g/dl (3.4-5.0); BLOOD UREA NITROGEN 18.3 mg/dL (7-18); CALCIUM 8.3 mg/dL (8.5-10.1)
[2024-11-11 09:42] LABS: CREATININE 1.1 mg/dL (0.55-1.3)
[2024-11-11 09:43] LABS: BILIRUBIN,TOTAL 0.2 mg/dL (0.2-1)
[2024-11-11 09:44] LABS: TOT PROT 5.6 g/dl (6.4-8.2)
[2024-11-11] MEDS: NIFEdipine E.R. 30 MG TABLET PO SCH (10:21)
[2024-11-11] MEDS: LOSARTAN POTASSIUM 50 MG TABLET PO SCH (12:01)
[2024-11-11] MEDS: LACTATED RINGERS SOLUTION 1,000 ML IV SCH (15:30)
[2024-11-11] MEDS: METHAZOLAMIDE PO SCH (22:05)
[2024-11-11] MEDS: PILOCARPINE HCL 2% OS SCH (22:08)
[2024-11-12] MEDS: VANCOMYCIN 500 MG in DEXTROSE 5%-WATER 100 ML IVPB ONE (15:11)
[2024-11-13] MEDS: VANCOMYCIN 500 MG in DEXTROSE 5%-WATER - 100 ML IVPB ONE (02:10)
[2024-11-14 11:30] LABS: HEMOGLOBIN 10.4 g/dL (13.7-17.5); MCHC 28.9 g/dl (32.3-36.5); MEAN CELL VOLUME 89.6 fl (79.0-92.2); PLATELET COUNT 386 x10^3/uL (163-337); RDW 15.6 % (12.2-16.4)
[2024-11-14 11:55] LABS: POTASSIUM 3.8 mmol/L (3.5-5.1)
[2024-11-14 12:14] LABS: BILIRUBIN,TOTAL 0.2 mg/dL (0.2-1); BLOOD UREA NITROGEN 17.8 mg/dL (7-18); TOT PROT 6.1 g/dl (6.4-8.2)
[2024-11-14 12:17] LABS: CALCIUM 8.9 mg/dL (8.5-10.1)
[2024-11-14] MEDS: ENOXAPARIN NA (PORCINE) 100 MG/1 ML DISP.SYRIN SQ SCH (22:13)
[2024-11-14] MEDS: INSULIN GLARGINE (LANTUS) 100 UNITS/ML UNITS SQ SCH (22:14)
[2024-11-15 07:46] LABS: HEMATOCRIT 35.3 % (40.1-51.0); HEMOGLOBIN 10.4 g/dL (13.7-17.5); MCHC 29.5 g/dl (32.3-36.5); MEAN CELL VOLUME 88.5 fl (79.0-92.2); MEAN PLT VOLUME 9.1 fl (9.4-12.4); PLATELET COUNT 398 x10^3/uL (163-337); RDW 15.7 % (12.2-16.4)
[2024-11-15 08:11] LABS: CHLORIDE 102 mmol/L (98-107); POTASSIUM 3.4 mmol/L (3.5-5.1); SODIUM 140 mmol/L (136-145)
[2024-11-15 08:25] LABS: ANION GAP 16 mmol/L (4-13); BLOOD UREA NITROGEN 15.8 mg/dL (7-18); CALCIUM 8.3 mg/dL (8.5-10.1); CO2 22 mmol/L (21-32)
[2024-11-15 08:26] LABS: ALBUMIN 1.8 g/dl (3.4-5.0); GLUCOSE,RANDOM 206 mg/dL (74-106)
[2024-11-15 08:29] LABS: SGOT/AST 10 U/L (15-37)
[2024-11-15 08:30] LABS: BILIRUBIN,TOTAL 0.2 mg/dL (0.2-1); TOT PROT 6.3 g/dl (6.4-8.2)
[2024-11-15 08:32] LABS: ALK PHOS 85 U/L (45-117)
[2024-11-15 08:34] LABS: SGPT/ALT < 6 U/L (13-61)
[2024-11-15] MEDS: POTASSIUM CHLORIDE ORAL LIQUID 20 MEQ/15 ML PO ONE (11:47)
[2024-11-15] MEDS: PERMETHRIN (NIX CREAM SCALP RINSE) 59 ML 1% BOTTLE TP ONE (12:23)
[2024-11-15] MEDS: AMINO ACIDS/PROTEIN HYDROLYS 30 ML LIQUID.PKT PO SCH (16:33)
[2024-11-15] MEDS: INSULIN (NOVOLOG) ASPART 100 UNITS/ML 10ML VIAL SQ SCH (16:40)
[2024-11-15] MEDS: ACETAMINOPHEN 325 MG TABLET (FP) PO ONE (21:06)
[2024-11-15] MEDS: INSULIN GLARGINE (LANTUS) 100 UNITS/ML UNITS SQ SCH (21:12)
[2024-11-16 08:51] LABS: HEMATOCRIT 36.1 % (40.1-51.0); HEMOGLOBIN 10.2 g/dL (13.7-17.5); MCHC 28.3 g/dl (32.3-36.5); MEAN CELL VOLUME 88.3 fl (79.0-92.2); MEAN PLT VOLUME 9.2 fl (9.4-12.4); PLATELET COUNT 390 x10^3/uL (163-337); RDW 15.8 % (12.2-16.4)
[2024-11-16 08:54] LABS: INR 1.14 (0.83-1.09); PROTHROMBIN TIME (PATIENT) 12.4 SEC (9.7-13.0)
[2024-11-16 09:04] LABS: POTASSIUM 3.9 mmol/L (3.5-5.1)
[2024-11-16 09:07] LABS: CALCIUM 8.9 mg/dL (8.5-10.1)
[2024-11-16 09:08] LABS: BLOOD UREA NITROGEN 19.6 mg/dL (7-18); MAGNESIUM 1.8 mg/dL (1.8-2.4)
[2024-11-16 09:11] LABS: CREATININE 1.1 mg/dL (0.55-1.3)
[2024-11-16] MEDS: MELATONIN 5 MG TABLETS PO PRN (21:08)
[2024-11-17 08:26] LABS: HEMATOCRIT 36.8 % (40.1-51.0); HEMOGLOBIN 10.6 g/dL (13.7-17.5); MCHC 28.8 g/dl (32.3-36.5); MEAN CELL VOLUME 88.5 fl (79.0-92.2); MEAN PLT VOLUME 9.3 fl (9.4-12.4); PLATELET COUNT 368 x10^3/uL (163-337); RDW 15.9 % (12.2-16.4)
[2024-11-17 08:31] LABS: INR 1.12 (0.83-1.09); PROTHROMBIN TIME (PATIENT) 12.3 SEC (9.7-13.0)
[2024-11-17 08:47] LABS: ALBUMIN 1.9 g/dl (3.4-5.0); BLOOD UREA NITROGEN 19.4 mg/dL (7-18); CALCIUM 8.9 mg/dL (8.5-10.1); CO2 24 mmol/L (21-32)
[2024-11-17 08:48] LABS: GLUCOSE,RANDOM 169 mg/dL (74-106)
[2024-11-17 08:50] LABS: SGOT/AST 10 U/L (15-37); SGPT/ALT < 6 U/L (13-61)
[2024-11-17 08:52] LABS: BILIRUBIN,TOTAL 0.3 mg/dL (0.2-1); TOT PROT 6.1 g/dl (6.4-8.2)
[2024-11-17 08:53] LABS: ALK PHOS 88 U/L (45-117)
[2024-11-17 14:12] LABS: ANION GAP 5 mmol/L (4-13); CHLORIDE 108 mmol/L (98-107); POTASSIUM 4.2 mmol/L (3.5-5.1); SODIUM 138 mmol/L (136-145)
[2024-11-17] MEDS ORDERED: PROPOFOL 20 ML ONE ×2 (15:16→21:14)
[2024-11-17] MEDS ORDERED: MIDAZOLAM HCL 2 MG/2 ML SINGLE DOSE VIAL ONE (15:16)
[2024-11-17] MEDS ORDERED: SUCCINYLCHOLINE CHLORIDE 200 MG/10 ML SYRINGE ONE (15:16)
[2024-11-17] MEDS ORDERED: LIDOCAINE HCL/PF 2% SDV 5ML VIAL ONE (15:16)
[2024-11-17] MEDS ORDERED: HEPARIN NA (PORCINE) 5,000 UNITS/ML 1ML VIAL ONE (16:33)
[2024-11-17] MEDS ORDERED: PAPAVERINE HCL 30 MG/1 ML 10 ML VIAL NR ONE (16:33)
[2024-11-17] MEDS: ceFAZolin SODIUM 1 GM VIAL IVPB ONE (17:10)
[2024-11-17] MEDS ORDERED: ceFAZolin SODIUM 1 GM VIAL ONE (17:10)
[2024-11-17] MEDS ORDERED: ROCURONIUM BROMIDE 50 MG/5 ML SYRINGE ONE (18:10)
[2024-11-17] MEDS ORDERED: POVIDONE-IODINE OINTMENT 10% - 28.4 GM TUBE ONE (18:15)
[2024-11-17] MEDS ORDERED: PROTAMINE SULFATE 50 MG/5 ML VIAL ONE (20:57)
[2024-11-17] MEDS ORDERED: MELATONIN 5 MG TABLETS PO PRN (22:17)
[2024-11-17] MEDS: LACTATED RINGERS SOLUTION 1,000 ML IV SCH (22:57)
[2024-11-17 23:00] LABS: HEMATOCRIT 34.3 % (40.1-51.0); MCHC 29.2 g/dl (32.3-36.5); MEAN CELL VOLUME 87.9 fl (79.0-92.2); MEAN PLT VOLUME 9.1 fl (9.4-12.4); PLATELET COUNT 335 x10^3/uL (163-337); RDW 15.9 % (12.2-16.4)
[2024-11-17 23:23] LABS: POTASSIUM 4.3 mmol/L (3.5-5.1)
[2024-11-17 23:26] LABS: BLOOD UREA NITROGEN 16.9 mg/dL (7-18); CALCIUM 8.6 mg/dL (8.5-10.1); MAGNESIUM 1.7 mg/dL (1.8-2.4)
[2024-11-17 23:29] LABS: CREATININE 0.8 mg/dL (0.55-1.3); PHOSPHOROUS 3.7 mg/dL (2.5-4.9)
[2024-11-17 23:31] LABS: BILIRUBIN,TOTAL 0.2 mg/dL (0.2-1)
[2024-11-18] MEDS: MUPIROCIN 2% TOPICAL OINTMENT FOR DECOLONIZATION NS SCH (00:24)
[2024-11-18] MEDS: CHLORHEXIDINE GLUCONATE 4% CLEANSER FOR DECOLONIZATION TP SCH (00:24)
[2024-11-18] MEDS: ACETAMINOPHEN 325 MG TABLET (FP) PO SCH (06:28)
[2024-11-18] MEDS: PIPERACILLIN/TAZOB 3.375 GM 50 ML IVPB SCH (06:31)
[2024-11-18] MEDS: BRIMONIDINE TARTRATE 0.2% OPHTHALMIC 5 ML BOTTLE OS SCH (06:32)
[2024-11-18] MEDS: PILOCARPINE HCL OS SCH (06:33)
[2024-11-18] MEDS: INSULIN (NOVOLOG) ASPART 100 UNITS/ML 10ML VIAL SQ SCH (06:41)
[2024-11-18 06:42] LABS: HEMATOCRIT 32.8 % (40.1-51.0); HEMOGLOBIN 9.4 g/dL (13.7-17.5); MCHC 28.7 g/dl (32.3-36.5); MEAN CELL VOLUME 89.4 fl (79.0-92.2); MEAN PLT VOLUME 8.5 fl (9.4-12.4); PLATELET COUNT 317 x10^3/uL (163-337); RDW 15.9 % (12.2-16.4)
[2024-11-18] MEDS: INSULIN ASPART SLIDING SCALE (NOVOLOG) 1 VIAL SQ SCH (06:43)
[2024-11-18] MEDS: MAGNESIUM SULFATE IN WATER 2 GM/50 ML IVPB IVPB ONE (06:52)
[2024-11-18 08:32] LABS: POTASSIUM 4.7 mmol/L (3.5-5.1)
[2024-11-18 08:48] LABS: CALCIUM 8.6 mg/dL (8.5-10.1)
[2024-11-18 08:49] LABS: ALBUMIN 1.9 g/dl (3.4-5.0); MAGNESIUM 1.7 mg/dL (1.8-2.4)
[2024-11-18 08:50] LABS: BILIRUBIN,TOTAL 0.2 mg/dL (0.2-1); TOT PROT 5.6 g/dl (6.4-8.2)
[2024-11-18] MEDS: CLOPIDOGREL BISULFATE 75 MG TABLET (FP) PO SCH (09:21)
[2024-11-18] MEDS: FAMOTIDINE 20 MG TABLET PO SCH (09:21)
[2024-11-18] MEDS: NIFEdipine E.R. 30 MG TABLET PO SCH (09:21)
[2024-11-18] MEDS: LOSARTAN POTASSIUM 50 MG TABLET PO SCH (09:21)
[2024-11-18] MEDS: TAMSULOSIN HCL 0.4 MG CAP PO SCH (09:22)
[2024-11-18] MEDS: ASPIRIN COATED 81 MG TABLET.EC PO SCH (09:22)
[2024-11-18] MEDS: METHAZOLAMIDE PO SCH (09:25)
[2024-11-18] MEDS: DORZOLAMIDE HCL/TIMOLOL OPHTHALMIC SOLUTION 10 ML BOTTLE OU SCH (09:26)
[2024-11-18] MEDS: AMINO ACIDS/PROTEIN HYDROLYS 30 ML LIQUID.PKT PO SCH (09:26)
[2024-11-18] MEDS: ONDANSETRON 4 MG/2 ML VIAL IVPB ONE (12:17)
[2024-11-18] MEDS: LACTATED RINGERS SOLUTION 1,000 ML IV SCH (12:54)
[2024-11-18] MEDS: PRAMIPEXOLE DIHYDROCHLORIDE 0.25 MG TABLET PO SCH (15:08)
[2024-11-18] MEDS: PERMETHRIN (NIX CREAM SCALP RINSE) 59 ML 1% BOTTLE TP ONE (16:30)
[2024-11-18 16:56] LABS: HEMATOCRIT 26.1 % (40.1-51.0); HEMOGLOBIN 7.4 g/dL (13.7-17.5); MCHC 28.4 g/dl (32.3-36.5); MEAN CELL VOLUME 89.4 fl (79.0-92.2); MEAN PLT VOLUME 8.8 fl (9.4-12.4); PLATELET COUNT 269 x10^3/uL (163-337); RDW 16.1 % (12.2-16.4)
[2024-11-18 18:03] LABS: INR 1.2 (0.83-1.09); PROTHROMBIN TIME (PATIENT) 13.1 SEC (9.7-13.0)
[2024-11-18 18:06] LABS: ACTIVATED PTT 31.6 SECONDS (25.2-36.5)
[2024-11-18] MEDS: INSULIN GLARGINE (LANTUS) 100 UNITS/ML UNITS SQ SCH (22:10)
[2024-11-18] MEDS: ATORVASTATIN CA 40 MG TABLET (FP) PO SCH (22:18)
[2024-11-18 22:41] LABS: ABSOLUTE IMMATURE GRANULOCYTES 0.08 x10^3/uL (0.0-0.031); BASOPHILS # 0.01 x10^3/uL (0.01-0.08); EOSINOPHIL % 0.6 % (0.8-7.0); EOSINOPHILS # 0.06 x10^3/uL (0.04-0.54); HEMATOCRIT 24.7 % (40.1-51.0); HEMOGLOBIN 7.3 g/dL (13.7-17.5); MCHC 29.6 g/dl (32.3-36.5); MEAN CELL VOLUME 90.8 fl (79.0-92.2); MEAN PLT VOLUME 8.7 fl (9.4-12.4); MONOCYTE % 7.4 % (5.3-12.2); PLATELET COUNT 223 x10^3/uL (163-337); RDW 15.9 % (12.2-16.4)
[2024-11-19 10:06] LABS: ABSOLUTE IMMATURE GRANULOCYTES 0.09 x10^3/uL (0.0-0.031); BASOPHILS # 0.03 x10^3/uL (0.01-0.08); EOSINOPHIL % 0.8 % (0.8-7.0); EOSINOPHILS # 0.08 x10^3/uL (0.04-0.54); HEMATOCRIT 35.9 % (40.1-51.0); HEMOGLOBIN 11.1 g/dL (13.7-17.5); MCHC 30.9 g/dl (32.3-36.5); MEAN CELL VOLUME 87.8 fl (79.0-92.2); MEAN PLT VOLUME 8.8 fl (9.4-12.4); MONOCYTE # 0.82 x10^3/uL (0.30-0.82); MONOCYTE % 7.9 % (5.3-12.2); PLATELET COUNT 273 x10^3/uL (163-337); RDW 15.5 % (12.2-16.4)
[2024-11-19 10:56] LABS: POTASSIUM 4.1 mmol/L (3.5-5.1)
[2024-11-19 10:58] LABS: ALBUMIN 1.8 g/dl (3.4-5.0); CALCIUM 8.2 mg/dL (8.5-10.1)
[2024-11-19 10:59] LABS: BLOOD UREA NITROGEN 17.1 mg/dL (7-18)
[2024-11-19 11:02] LABS: CREATININE 1.1 mg/dL (0.55-1.3)
[2024-11-19 11:03] LABS: BILIRUBIN,TOTAL 0.8 mg/dL (0.2-1); TOT PROT 5.4 g/dl (6.4-8.2)
[2024-11-19 15:31] LABS: HEMATOCRIT 39.8 % (40.1-51.0); HEMOGLOBIN 11.8 g/dL (13.7-17.5); MCHC 29.6 g/dl (32.3-36.5); MEAN CELL VOLUME 88.6 fl (79.0-92.2); MEAN PLT VOLUME 8.9 fl (9.4-12.4); PLATELET COUNT 312 x10^3/uL (163-337); RDW 15.9 % (12.2-16.4)
[2024-11-20 06:50] LABS: HEMATOCRIT 34.4 % (40.1-51.0); HEMOGLOBIN 10.7 g/dL (13.7-17.5); MCHC 31.1 g/dl (32.3-36.5); MEAN PLT VOLUME 9.1 fl (9.4-12.4); PLATELET COUNT 275 x10^3/uL (163-337); RDW 16.2 % (12.2-16.4)
[2024-11-20] MEDS: ACETAMINOPHEN 325 MG TABLET (FP) PO SCH (14:34)
[2024-11-20] MEDS: PIPERACILLIN/TAZOB 3.375 GM 50 ML IVPB SCH (14:34)
[2024-11-20] MEDS: BRIMONIDINE TARTRATE 0.2% OPHTHALMIC 5 ML BOTTLE OS SCH (14:49)
[2024-11-20] MEDS: INSULIN (NOVOLOG) ASPART 100 UNITS/ML 10ML VIAL SQ SCH (16:48)
[2024-11-20] MEDS: INSULIN ASPART SLIDING SCALE (NOVOLOG) 1 VIAL SQ SCH (16:49)
[2024-11-20] MEDS: AMINO ACIDS/PROTEIN HYDROLYS 30 ML LIQUID.PKT PO SCH (17:06)
[2024-11-20] MEDS ORDERED: INSULIN ASPART SLIDING SCALE (NOVOLOG) 1 VIAL SQ ONE (18:41)
[2024-11-20] MEDS: DORZOLAMIDE HCL/TIMOLOL OPHTHALMIC SOLUTION 10 ML BOTTLE OU SCH (21:56)
[2024-11-20] MEDS: FAMOTIDINE 20 MG TABLET PO SCH (21:57)
[2024-11-20] MEDS: INSULIN GLARGINE (LANTUS) 100 UNITS/ML UNITS SQ SCH (21:57)
[2024-11-20] MEDS: ATORVASTATIN CA 40 MG TABLET (FP) PO SCH (21:58)
[2024-11-20] MEDS: PRAMIPEXOLE DIHYDROCHLORIDE 0.25 MG TABLET PO SCH (21:58)
[2024-11-20] MEDS ORDERED: MUPIROCIN 2% TOPICAL OINTMENT FOR DECOLONIZATION NS SCH (22:00)
[2024-11-20] MEDS ORDERED: CHLORHEXIDINE GLUCONATE 4% CLEANSER FOR DECOLONIZATION TP SCH (22:00)
[2024-11-20] MEDS: NON-FORMULARY MED PO SCH (22:11)
[2024-11-21 08:45] LABS: HEMATOCRIT 33.6 % (40.1-51.0); HEMOGLOBIN 10.2 g/dL (13.7-17.5); MCHC 30.4 g/dl (32.3-36.5); MEAN CELL VOLUME 88.7 fl (79.0-92.2); PLATELET COUNT 266 x10^3/uL (163-337); RDW 16.3 % (12.2-16.4)
[2024-11-21] MEDS: TAMSULOSIN HCL 0.4 MG CAP PO SCH (08:51)
[2024-11-21 09:07] LABS: POTASSIUM 3.8 mmol/L (3.5-5.1)
[2024-11-21 09:12] LABS: ALBUMIN 1.8 g/dl (3.4-5.0); CALCIUM 8.3 mg/dL (8.5-10.1)
[2024-11-21 09:13] LABS: BLOOD UREA NITROGEN 10.2 mg/dL (7-18); MAGNESIUM 1.7 mg/dL (1.8-2.4)
[2024-11-21 09:14] LABS: CREATININE 0.9 mg/dL (0.55-1.3)
[2024-11-21 09:16] LABS: PHOSPHOROUS 2.3 mg/dL (2.5-4.9)
[2024-11-21 09:17] LABS: BILIRUBIN,TOTAL 0.4 mg/dL (0.2-1); TOT PROT 5.4 g/dl (6.4-8.2)
[2024-11-21] MEDS: ASPIRIN COATED 81 MG TABLET.EC PO SCH (11:14)
[2024-11-21] MEDS: MAGNESIUM SULFATE IN WATER 2 GM/50 ML IVPB IVPB ONE (11:14)
[2024-11-21] MEDS: NIFEdipine E.R. 30 MG TABLET PO SCH (11:15)
[2024-11-21] MEDS: CLOPIDOGREL BISULFATE 75 MG TABLET (FP) PO SCH (11:15)
[2024-11-21] MEDS: LOSARTAN POTASSIUM 50 MG TABLET PO SCH (11:15)
[2024-11-21] MEDS ORDERED: INSULIN ASPART SLIDING SCALE (NOVOLOG) 1 VIAL SQ ONE (11:27)
[2024-11-21] MEDS: AMOX TR/POT CLAV 875MG/125MG TABLETS (FP) PO SCH (18:23)
[2024-11-22] MEDS: MELATONIN 5 MG TABLETS PO PRN (01:46)
[2024-11-22 08:38] LABS: ABSOLUTE IMMATURE GRANULOCYTES 0.06 x10^3/uL (0.0-0.031); BASOPHILS # 0.03 x10^3/uL (0.01-0.08); EOSINOPHIL % 2.3 % (0.8-7.0); EOSINOPHILS # 0.26 x10^3/uL (0.04-0.54); HEMATOCRIT 35.5 % (40.1-51.0); HEMOGLOBIN 10.7 g/dL (13.7-17.5); MCHC 30.1 g/dl (32.3-36.5); MONOCYTE # 0.81 x10^3/uL (0.30-0.82); MONOCYTE % 7.2 % (5.3-12.2); PLATELET COUNT 315 x10^3/uL (163-337); RDW 16.4 % (12.2-16.4)
[2024-11-22 08:46] LABS: INR 1.17 (0.83-1.09); PROTHROMBIN TIME (PATIENT) 12.7 SEC (9.7-13.0)
[2024-11-22 09:06] LABS: POTASSIUM 3.9 mmol/L (3.5-5.1)
[2024-11-22 09:19] LABS: BLOOD UREA NITROGEN 15.8 mg/dL (7-18); CALCIUM 8.4 mg/dL (8.5-10.1); MAGNESIUM 2.1 mg/dL (1.8-2.4)
[2024-11-22 09:22] LABS: CREATININE 0.8 mg/dL (0.55-1.3)
[2024-11-22 09:23] LABS: TOT PROT 5.7 g/dl (6.4-8.2)
[2024-11-22 09:24] LABS: BILIRUBIN,TOTAL 0.3 mg/dL (0.2-1)
[2024-11-22] MEDS: PILOCARPINE HCL OS SCH (13:19)
[2024-11-23 09:10] LABS: ABSOLUTE IMMATURE GRANULOCYTES 0.08 x10^3/uL (0.0-0.031); BASOPHILS # 0.07 x10^3/uL (0.01-0.08); EOSINOPHIL % 2.4 % (0.8-7.0); EOSINOPHILS # 0.28 x10^3/uL (0.04-0.54); HEMATOCRIT 36.3 % (40.1-51.0); HEMOGLOBIN 10.8 g/dL (13.7-17.5); MCHC 29.8 g/dl (32.3-36.5); MEAN CELL VOLUME 90.3 fl (79.0-92.2); MEAN PLT VOLUME 8.7 fl (9.4-12.4); MONOCYTE # 0.74 x10^3/uL (0.30-0.82); MONOCYTE % 6.4 % (5.3-12.2); PLATELET COUNT 290 x10^3/uL (163-337); RDW 16.5 % (12.2-16.4)
[2024-11-23 09:27] LABS: CHLORIDE 112 mmol/L (98-107); POTASSIUM 3.8 mmol/L (3.5-5.1); SODIUM 139 mmol/L (136-145)
[2024-11-23 09:31] LABS: CALCIUM 8.6 mg/dL (8.5-10.1)
[2024-11-23 09:32] LABS: ANION GAP 7 mmol/L (4-13); BLOOD UREA NITROGEN 17.9 mg/dL (7-18); CO2 21 mmol/L (21-32); GLUCOSE,RANDOM 136 mg/dL (74-106); MAGNESIUM 1.9 mg/dL (1.8-2.4)
[2024-11-23 09:35] LABS: CREATININE 0.9 mg/dL (0.55-1.3); SGOT/AST 15 U/L (15-37)
[2024-11-23 09:37] LABS: BILIRUBIN,TOTAL 0.3 mg/dL (0.2-1); TOT PROT 5.8 g/dl (6.4-8.2)
[2024-11-23 09:38] LABS: ALK PHOS 97 U/L (45-117)
[2024-11-23 09:39] LABS: SGPT/ALT < 6 U/L (13-61)
[2024-11-23] MEDS: SENNOSIDES/DOCUSATE COMBO (SENNA PLUS) TABLET (UD) PO SCH (13:13)
[2024-11-23] MEDS: POLYETHYLENE GLYCOL (HEALTHYLAX) 3350 17 GM PACKET PO SCH (13:13)
[2024-11-24] MEDS ORDERED: LIDOCAINE HCL/PF 2% SDV 5ML VIAL ONE (07:18)
[2024-11-24] MEDS ORDERED: LIDOCAINE 1%/EPI 1:100000 (20 ML MULTI DOSE VIAL) ONE (07:18)
[2024-11-24] MEDS ORDERED: BUPIVACAINE HCL/PF 0.5% (5MG/ML) 10 ML VIAL ONE (07:18)
[2024-11-24] MEDS ORDERED: GENTAMICIN SO4 80 MG/2 ML VIAL ONE (07:18)
[2024-11-24] MEDS ORDERED: LIDOCAINE HCL 1%, 10 MG/ML (20ML VIAL) ONE (07:18)
[2024-11-24] MEDS ORDERED: PROPOFOL 20 ML ONE (07:18)
[2024-11-24] MEDS ORDERED: MIDAZOLAM HCL 2 MG/2 ML SINGLE DOSE VIAL ONE (07:19)
[2024-11-24] MEDS ORDERED: PROPOFOL 40 ML ONE (07:44)
[2024-11-24] MEDS: ceFAZolin SODIUM 1 GM VIAL IVPB ONE (07:52)
[2024-11-24] MEDS ORDERED: ceFAZolin SODIUM 1 GM VIAL ONE (07:53)
[2024-11-24] MEDS ORDERED: DEXAMETHASONE SOD PHOSPHATE 4 MG/1 ML VIAL ONE (07:53)
[2024-11-24] MEDS: LIDOCAINE HCL 1%, 10 MG/ML (20ML VIAL) NR ONE (08:00)
[2024-11-24] MEDS: BUPIVACAINE HCL/PF 0.5% (5MG/ML) 10 ML VIAL IJ ONE (08:06)
[2024-11-24] MEDS ORDERED: PROMETHAZINE HCL 25 MG/1 ML VIAL IVPB PRN ×2 (08:15→09:14)
[2024-11-24] MEDS ORDERED: ONDANSETRON 4 MG/2 ML VIAL IVPUSH PRN ×2 (08:15→09:14)
[2024-11-24] MEDS: ACETAMINOPHEN 1000 MG/100 ML BAG IVPB ONE ×2 (09:34→10:46)
[2024-11-24] MEDS: ACETAMINOPHEN INJECTION 100 ML ONE (09:34)
[2024-11-24] MEDS: FAMOTIDINE 20 MG TABLET PO SCH (10:27)
[2024-11-24] MEDS: PRAMIPEXOLE DIHYDROCHLORIDE 0.25 MG TABLET PO SCH (10:27)
[2024-11-24] MEDS: SENNOSIDES/DOCUSATE COMBO (SENNA PLUS) TABLET (UD) PO SCH (10:28)
[2024-11-24] MEDS: NIFEdipine E.R. 30 MG TABLET PO SCH (10:28)
[2024-11-24] MEDS: LOSARTAN POTASSIUM 50 MG TABLET PO SCH (10:29)
[2024-11-24] MEDS: POLYETHYLENE GLYCOL (HEALTHYLAX) 3350 17 GM PACKET PO SCH (10:30)
[2024-11-24] MEDS: NON-FORMULARY MED PO SCH (10:32)
[2024-11-24] MEDS: ASPIRIN COATED 81 MG TABLET.EC PO SCH (10:32)
[2024-11-24] MEDS: DORZOLAMIDE HCL/TIMOLOL OPHTHALMIC SOLUTION 10 ML BOTTLE OU SCH (10:34)
[2024-11-24] MEDS: LACTATED RINGERS SOLUTION 1,000 ML IV SCH ×2 (10:46)
[2024-11-24 11:03] LABS: HEMATOCRIT 37.9 % (40.1-51.0); HEMOGLOBIN 10.9 g/dL (13.7-17.5); MCHC 28.8 g/dl (32.3-36.5); MEAN CELL VOLUME 93.3 fl (79.0-92.2); MEAN PLT VOLUME 9.1 fl (9.4-12.4); PLATELET COUNT 274 x10^3/uL (163-337)
[2024-11-24 11:22] LABS: POTASSIUM 4.2 mmol/L (3.5-5.1)
[2024-11-24 11:26] LABS: BLOOD UREA NITROGEN 18.5 mg/dL (7-18); CALCIUM 8.6 mg/dL (8.5-10.1); MAGNESIUM 1.7 mg/dL (1.8-2.4)
[2024-11-24 11:30] LABS: CREATININE 0.9 mg/dL (0.55-1.3)
[2024-11-24 11:31] LABS: BILIRUBIN,TOTAL 0.2 mg/dL (0.2-1)
[2024-11-24] MEDS: INSULIN (NOVOLOG) ASPART 100 UNITS/ML 10ML VIAL SQ SCH (11:53)
[2024-11-24] MEDS: INSULIN ASPART SLIDING SCALE (NOVOLOG) 1 VIAL SQ SCH (11:54)
[2024-11-24] MEDS: ACETAMINOPHEN 325 MG TABLET (FP) PO SCH (13:08)
[2024-11-24] MEDS: BRIMONIDINE TARTRATE 0.2% OPHTHALMIC 5 ML BOTTLE OS SCH (13:11)
[2024-11-24] MEDS: ACETAMINOPHEN 1000 MG/100 ML BAG IVPB PRN (17:02)
[2024-11-24] MEDS: AMOX TR/POT CLAV 875MG/125MG TABLETS (FP) PO SCH (19:54)
[2024-11-24] MEDS: AMINO ACIDS/PROTEIN HYDROLYS 30 ML LIQUID.PKT PO SCH (19:55)
[2024-11-24] MEDS: INSULIN GLARGINE (LANTUS) 100 UNITS/ML UNITS SQ SCH (21:21)
[2024-11-24] MEDS: ATORVASTATIN CA 40 MG TABLET (FP) PO SCH (21:23)
[2024-11-25] MEDS: MELATONIN 5 MG TABLETS PO PRN (01:08)
[2024-11-25 08:13] LABS: BASOPHILS # 0.04 x10^3/uL (0.01-0.08); EOSINOPHIL % 0.7 % (0.8-7.0); EOSINOPHILS # 0.09 x10^3/uL (0.04-0.54); HEMATOCRIT 33.5 % (40.1-51.0); HEMOGLOBIN 10.1 g/dL (13.7-17.5); MCHC 30.1 g/dl (32.3-36.5); MEAN CELL VOLUME 90.5 fl (79.0-92.2); MEAN PLT VOLUME 9.1 fl (9.4-12.4); MONOCYTE # 0.84 x10^3/uL (0.30-0.82); MONOCYTE % 6.7 % (5.3-12.2); PLATELET COUNT 307 x10^3/uL (163-337); RDW 16.6 % (12.2-16.4)
[2024-11-25 08:29] LABS: POTASSIUM 3.5 mmol/L (3.5-5.1)
[2024-11-25 08:41] LABS: BLOOD UREA NITROGEN 15.6 mg/dL (7-18); CALCIUM 8.5 mg/dL (8.5-10.1); MAGNESIUM 1.7 mg/dL (1.8-2.4)
[2024-11-25 08:45] LABS: CREATININE 0.9 mg/dL (0.55-1.3)
[2024-11-25 08:46] LABS: BILIRUBIN,TOTAL 0.4 mg/dL (0.2-1); TOT PROT 5.7 g/dl (6.4-8.2)
[2024-11-25] MEDS: CLOPIDOGREL BISULFATE 75 MG TABLET (FP) PO SCH (09:34)
[2024-11-25] MEDS: TAMSULOSIN HCL 0.4 MG CAP PO SCH (09:34)
[2024-11-25] MEDS: traMADol HCL 50 MG TABLET PO ONE (13:49)
[2024-11-25] MEDS: MAGNESIUM OXIDE 400 MG TABLET (FP) PO ONE (15:07)
[2024-11-25] MEDS: ACETAMINOPHEN 1000 MG/100 ML BAG IVPB ONE (23:52)
[2024-11-26 01:20] VITALS: RESP 18
[2024-11-26] MEDS: ACETAMINOPHEN 1000 MG/100 ML BAG IVPB ONE (07:04)
[2024-11-26 08:54] LABS: BASOPHILS # 0.04 x10^3/uL (0.01-0.08); EOSINOPHIL % 1.7 % (0.8-7.0); EOSINOPHILS # 0.19 x10^3/uL (0.04-0.54); HEMOGLOBIN 9.3 g/dL (13.7-17.5); MEAN CELL VOLUME 90.1 fl (79.0-92.2); MEAN PLT VOLUME 9.2 fl (9.4-12.4); MONOCYTE # 0.73 x10^3/uL (0.30-0.82); MONOCYTE % 6.7 % (5.3-12.2); PLATELET COUNT 306 x10^3/uL (163-337); RDW 16.9 % (12.2-16.4)
[2024-11-26 09:11] LABS: POTASSIUM 3.7 mmol/L (3.5-5.1)
[2024-11-26 09:15] LABS: CALCIUM 8.7 mg/dL (8.5-10.1)
[2024-11-26 09:17] LABS: BLOOD UREA NITROGEN 22.3 mg/dL (7-18); MAGNESIUM 1.7 mg/dL (1.8-2.4)
[2024-11-26 09:18] VITALS: BP 136/56; PULSE 72; TEMP 97.9
[2024-11-26 09:20] LABS: CREATININE 0.9 mg/dL (0.55-1.3)
[2024-11-26 09:21] LABS: BILIRUBIN,TOTAL 0.3 mg/dL (0.2-1); TOT PROT 5.3 g/dl (6.4-8.2)
== END 2024-11-26 09:56 | DRG 271 ==
LOC: JER 14:19 → JERBED 16:55 → J6S 20:18 → JICU 11-17 23:48 → J8W 11-20 13:30
PROVIDERS: ADMIT Student in an Organized Health Care Education/Training Program; ATTEND Nurse Practitioner Family
PROC: 0QBN0ZZ Excision of Right Metatarsal, Open Approach (ICD-10-PCS; 2024-11-05)
PROC: 047K3DZ Dilation of Right Femoral Artery with Intraluminal Device, Percutaneous Approach (ICD-10-PCS; 2024-11-10)
PROC: 047L3ZZ Dilation of Left Femoral Artery, Percutaneous Approach (ICD-10-PCS; 2024-11-10)
PROC: B41DYZZ Fluoroscopy of Aorta and Bilateral Lower Extremity Arteries using Other Contrast (ICD-10-PCS; 2024-11-17)
PROC: 041 Lower Arteries, Bypass (ICD-10-PCS; principal; 2024-11-17 15:30)
PROC: 30233N1 Transfusion of Nonautologous Red Blood Cells into Peripheral Vein, Percutaneous Approach (ICD-10-PCS; 2024-11-18)
PROC: 0Y6M0Z0 Detachment at Right Foot, Complete, Open Approach (ICD-10-PCS; 2024-11-24)
PROC: B41DYZZ Fluoroscopy of Aorta and Bilateral Lower Extremity Arteries using Other Contrast (ICD-10-PCS; 2024-11-24)
DX: E11.52 Type 2 diabetes mellitus with diabetic peripheral angiopathy with gangrene (principal); D62 Acute posthemorrhagic anemia; L03.115 Cellulitis of right lower limb; M86.8X7 Other osteomyelitis, ankle and foot; E11.69 Type 2 diabetes mellitus with other specified complication; E11.621 Type 2 diabetes mellitus with foot ulcer; E11.51 Type 2 diabetes mellitus with diabetic peripheral angiopathy without gangrene; E11.65 Type 2 diabetes mellitus with hyperglycemia; I10 Essential (primary) hypertension; D64.9 Anemia, unspecified; H40.9 Unspecified glaucoma; E78.5 Hyperlipidemia, unspecified; I25.10 Atherosclerotic heart disease of native coronary artery without angina pectoris; N40.1 Benign prostatic hyperplasia with lower urinary tract symptoms; R33.9 Retention of urine, unspecified; K59.00 Constipation, unspecified
CPT/HCPCS: 36415; 36430; 71045-TC-FY; 73030-TC-LT-FY; 73610-TC-RT-FY; 73630-TC-RT-FY; 73718-TC-RT; 75635-TC; 76000-TC-FY; 76775-TC; 76856-TC; 80048; 80053; 82607; 82728; 82962; 83036; 83540; 83550; 83605; 83735; 84100; 85025; 85027; 85610; 85651; 85730; 86140; 86850; 86900; 86901; 86922; 87040; 87070; 87075; 87076; 87186; 87205; 87635; 88307-TC; 88311-TC; 93005; 93010; 93922; 93926-TC; 93970-TC; 93986; 94760; 97010-GP; 97110-GP; 97116-GP; 97161-GP; 97162-GP; 99285-25; C1760; C1876; C1894; G0463-25; G0480; J0131; J1644; P9038; P9058; Q9967

== ENCOUNTER 2024-12-30 14:33 | Inpatient (IN) | payer OTHER, BC ==
[2024-12-30 14:54] VITALS: BMI 26.1
[2024-12-30] MEDS: ACETAMINOPHEN 500 MG TABLET (FP) PO ONE (16:18)
[2024-12-30] MEDS ORDERED: VANCOMYCIN 1 GM PREMIX (F) 1 GM/200 ML BAG ONE (16:31)
[2024-12-30] MEDS ORDERED: ACETAMINOPHEN 325 MG TABLET (FP) ONE (16:31)
[2024-12-30] MEDS: PIPERACILLIN/TAZOB 4.5 GM 4.5 GM in DEXTROSE 5%-WATER 100 ML IVPB ONE (16:44)
[2024-12-30 17:04] LABS: ABSOLUTE IMMATURE GRANULOCYTES 0.20 x10^3/uL (0.0-0.031); BASOPHILS # 0.03 x10^3/uL (0.01-0.08); EOSINOPHIL % 0.3 % (0.8-7.0); EOSINOPHILS # 0.04 x10^3/uL (0.04-0.54); MCHC 29.5 g/dl (32.3-36.5); MEAN CELL VOLUME 88.3 fl (79.0-92.2); MEAN PLT VOLUME 9.2 fl (9.4-12.4); MONOCYTE # 0.78 x10^3/uL (0.30-0.82); MONOCYTE % 6.0 % (5.3-12.2); RDW 17.3 % (12.2-16.4)
[2024-12-30 17:16] LABS: INR 1.15 (0.83-1.09); PROTHROMBIN TIME (PATIENT) 12.5 SEC (9.7-13.0)
[2024-12-30 17:19] LABS: ACTIVATED PTT 30.2 SECONDS (25.2-36.5)
[2024-12-30] MEDS: VANCOMYCIN 1,000 MG in DEXTROSE 5%-WATER - 250 ML IVPB ONE (17:20)
[2024-12-30 17:21] LABS: CO2 19.0 mmol/L (21-32); GLUCOSE,RANDOM 151.0 mg/dL (74-106)
[2024-12-30 17:24] LABS: CREATININE 1.1 mg/dL (0.55-1.3); SGOT/AST 14.0 U/L (15-37); SGPT/ALT 7.0 U/L (13-61)
[2024-12-30 17:26] LABS: TOT PROT 6.6 g/dl (6.4-8.2)
[2024-12-30 17:27] LABS: ALK PHOS 95.0 U/L (45-117)
[2024-12-30 18:21] LABS: ERYTHROCYTE SEDIMENTATION RATE 106 mm/hr (0-20)
[2024-12-30] MEDS: ACETAMINOPHEN 1000 MG/100 ML BAG IVPB ONE (21:05)
[2024-12-30] MEDS ORDERED: ACETAMINOPHEN 1000 MG/100 ML BAG IVPB PRN (23:50)
[2024-12-31] MEDS: CLINDAMYCIN 600MG PREMIX IVPB 600 MG/50 ML BAG IVPB SCH (01:38)
[2024-12-31] MEDS: PIPERACILLIN/TAZOB 4.5 GM 4.5 GM in DEXTROSE 5%-WATER 100 ML IVPB SCH ×2 (02:55→13:59)
[2024-12-31] MEDS: VANCOMYCIN/WATER 1250 MG 1,250 MG/250 ML BAG IVPB SCH ×2 (04:41→14:00)
[2024-12-31] MEDS: INSULIN (NOVOLOG) ASPART 100 UNITS/ML 10ML VIAL SQ SCH (06:16)
[2024-12-31] MEDS: INSULIN ASPART SLIDING SCALE (NOVOLOG) 1 VIAL SQ SCH (06:16)
[2024-12-31] MEDS: BRIMONIDINE TARTRATE 0.2% OPHTHALMIC 5 ML BOTTLE OS SCH (06:21)
[2024-12-31 07:56] LABS: ABSOLUTE IMMATURE GRANULOCYTES 0.13 x10^3/uL (0.0-0.031); BASOPHILS # 0.04 x10^3/uL (0.01-0.08); EOSINOPHIL % 1.4 % (0.8-7.0); EOSINOPHILS # 0.12 x10^3/uL (0.04-0.54); MCHC 29.7 g/dl (32.3-36.5); MEAN CELL VOLUME 88.3 fl (79.0-92.2); MEAN PLT VOLUME 9.0 fl (9.4-12.4); MONOCYTE # 0.59 x10^3/uL (0.30-0.82); MONOCYTE % 6.9 % (5.3-12.2); RDW 17.2 % (12.2-16.4)
[2024-12-31 09:01] LABS: CO2 20 mmol/L (21-32); GLUCOSE,RANDOM 123 mg/dL (74-106)
[2024-12-31 09:04] LABS: CREATININE 1.1 mg/dL (0.55-1.3); SGOT/AST 14 U/L (15-37); SGPT/ALT < 6 U/L (13-61)
[2024-12-31 09:07] LABS: ALK PHOS 85 U/L (45-117)
[2024-12-31 09:09] LABS: TOT PROT 5.9 g/dl (6.4-8.2)
[2024-12-31] MEDS ORDERED: METHAZOLAMIDE 50 MG TABLET PO SCH (10:00)
[2024-12-31] MEDS: MAGNESIUM SULFATE IN WATER 2 GM/50 ML IVPB IVPB ONE (10:18)
[2024-12-31] MEDS: FAMOTIDINE 20 MG TABLET PO SCH (10:19)
[2024-12-31] MEDS: ASPIRIN COATED 81 MG TABLET.EC PO SCH (10:19)
[2024-12-31] MEDS: PRAMIPEXOLE DIHYDROCHLORIDE 0.25 MG TABLET PO SCH (10:19)
[2024-12-31] MEDS: NIFEdipine E.R. 30 MG TABLET PO SCH (10:19)
[2024-12-31] MEDS: POTASSIUM CHLORIDE TABS 20 MEQ TABLET.ER (FP) PO ONE (10:19)
[2024-12-31] MEDS: AMINO ACIDS/PROTEIN HYDROLYS 30 ML LIQUID.PKT PO SCH (10:19)
[2024-12-31] MEDS: TAMSULOSIN HCL 0.4 MG CAP PO SCH (10:20)
[2024-12-31] MEDS: DORZOLAMIDE HCL/TIMOLOL OPHTHALMIC SOLUTION 10 ML BOTTLE OU SCH (12:06)
[2024-12-31] MEDS: PIPERACILLIN/TAZOB 3.375 GM 3.375 GM in DEXTROSE 5%-WATER - 50 ML IVPB SCH (17:15)
[2024-12-31] MEDS ORDERED: PIPERACILLIN/TAZOBACTAM 3.375 GM VIAL IVPB ONE (17:17)
[2024-12-31] MEDS: PANTOPRAZOLE SODIUM 40 MG VIAL IVPUSH ONE (19:11)
[2024-12-31] MEDS: METOCLOPRAMIDE HCL INJECTION 10 MG/2 ML VIAL IVPUSH SCH (19:12)
[2024-12-31] MEDS: ATORVASTATIN CA 40 MG TABLET (FP) PO SCH (21:49)
[2024-12-31] MEDS: NYSTATIN POWDER 100,000 UNITS/GM - 15 GM TOPICAL POWDER TP SCH (21:49)
[2025-01-01] MEDS: PILOCARPINE HCL OS SCH (07:57)
[2025-01-01 08:02] LABS: ABSOLUTE IMMATURE GRANULOCYTES 0.17 x10^3/uL (0.0-0.031); BASOPHILS # 0.04 x10^3/uL (0.01-0.08); EOSINOPHIL % 1.8 % (0.8-7.0); EOSINOPHILS # 0.15 x10^3/uL (0.04-0.54); MCHC 29.8 g/dl (32.3-36.5); MEAN CELL VOLUME 88.6 fl (79.0-92.2); MEAN PLT VOLUME 9.1 fl (9.4-12.4); MONOCYTE # 0.63 x10^3/uL (0.30-0.82); MONOCYTE % 7.4 % (5.3-12.2); RDW 17.5 % (12.2-16.4)
[2025-01-01 08:42] LABS: CREATININE 1.1 mg/dL (0.55-1.3)
[2025-01-01 08:43] LABS: CO2 20.0 mmol/L (21-32); GLUCOSE,RANDOM 125.0 mg/dL (74-106); SGPT/ALT 7.0 U/L (13-61)
[2025-01-01 08:44] LABS: TOT PROT 6.1 g/dl (6.4-8.2)
[2025-01-01 08:45] LABS: ALK PHOS 85.0 U/L (45-117)
[2025-01-01 08:46] LABS: SGOT/AST 14.0 U/L (15-37)
[2025-01-01] MEDS: PANTOPRAZOLE 40 MG TABLET PO SCH (09:59)
[2025-01-01] MEDS: POVIDONE-IODINE 10% SOLN 118 ML BOTTLE TP ONE (11:03)
[2025-01-01] MEDS ORDERED: BISACODYL 5 MG TABLET.DR (FP) PO PRN (11:33)
[2025-01-01] MEDS: POLYETHYLENE GLYCOL (HEALTHYLAX) 3350 17 GM PACKET PO SCH (12:07)
[2025-01-02 09:09] LABS: ABSOLUTE IMMATURE GRANULOCYTES 0.14 x10^3/uL (0.0-0.031); BASOPHILS # 0.03 x10^3/uL (0.01-0.08); EOSINOPHIL % 1.9 % (0.8-7.0); EOSINOPHILS # 0.18 x10^3/uL (0.04-0.54); MCHC 29.8 g/dl (32.3-36.5); MEAN CELL VOLUME 88.4 fl (79.0-92.2); MEAN PLT VOLUME 8.7 fl (9.4-12.4); MONOCYTE # 0.65 x10^3/uL (0.30-0.82); MONOCYTE % 6.9 % (5.3-12.2); RDW 17.5 % (12.2-16.4)
[2025-01-02 09:35] LABS: CO2 22.0 mmol/L (21-32)
[2025-01-02 09:36] LABS: GLUCOSE,RANDOM 121.0 mg/dL (74-106)
[2025-01-02 09:39] LABS: SGOT/AST 25.0 U/L (15-37)
[2025-01-02 09:40] LABS: TOT PROT 6.3 g/dl (6.4-8.2)
[2025-01-02 09:41] LABS: ALK PHOS 89.0 U/L (45-117); SGPT/ALT 10.0 U/L (13-61)
[2025-01-02 09:42] LABS: CREATININE 1.0 mg/dL (0.55-1.3)
[2025-01-02] MEDS: ENOXAPARIN NA (PORCINE) 40 MG/0.4 ML DISP.SYRIN SQ SCH (09:56)
[2025-01-02] MEDS: MAGNESIUM SULFATE IN WATER 2 GM/50 ML IVPB IVPB ONE (11:08)
[2025-01-03 10:12] LABS: MCHC 29.8 g/dl (32.3-36.5); MEAN CELL VOLUME 89.2 fl (79.0-92.2); MEAN PLT VOLUME 8.7 fl (9.4-12.4); RDW 17.3 % (12.2-16.4)
[2025-01-03 12:25] LABS: CO2 22.0 mmol/L (21-32); GLUCOSE,RANDOM 130.0 mg/dL (74-106)
[2025-01-03 12:28] LABS: CREATININE 0.9 mg/dL (0.55-1.3); SGOT/AST 20.0 U/L (15-37); SGPT/ALT 11.0 U/L (13-61)
[2025-01-03 12:30] LABS: TOT PROT 6.4 g/dl (6.4-8.2)
[2025-01-03 12:31] LABS: ALK PHOS 93.0 U/L (45-117)
[2025-01-03] MEDS: METHAZOLAMIDE 50 MG PO SCH (17:38)
[2025-01-04 08:19] LABS: ABSOLUTE IMMATURE GRANULOCYTES 0.12 x10^3/uL (0.0-0.031); BASOPHILS # 0.03 x10^3/uL (0.01-0.08); EOSINOPHIL % 1.6 % (0.8-7.0); EOSINOPHILS # 0.14 x10^3/uL (0.04-0.54); MCHC 29.9 g/dl (32.3-36.5); MEAN CELL VOLUME 89.0 fl (79.0-92.2); MEAN PLT VOLUME 8.9 fl (9.4-12.4); MONOCYTE # 0.65 x10^3/uL (0.30-0.82); MONOCYTE % 7.3 % (5.3-12.2); RDW 17.5 % (12.2-16.4)
[2025-01-04 08:45] LABS: CO2 22.0 mmol/L (21-32); GLUCOSE,RANDOM 144.0 mg/dL (74-106)
[2025-01-04 08:48] LABS: CREATININE 0.9 mg/dL (0.55-1.3); SGOT/AST 19.0 U/L (15-37); SGPT/ALT 10.0 U/L (13-61)
[2025-01-04 08:50] LABS: TOT PROT 6.1 g/dl (6.4-8.2)
[2025-01-04 08:51] LABS: ALK PHOS 90.0 U/L (45-117)
[2025-01-05 08:01] LABS: MCHC 29.1 g/dl (32.3-36.5); MEAN CELL VOLUME 89.5 fl (79.0-92.2); MEAN PLT VOLUME 8.8 fl (9.4-12.4); RDW 17.4 % (12.2-16.4)
[2025-01-05 08:31] LABS: SGOT/AST 16.0 U/L (15-37); SGPT/ALT 9.0 U/L (13-61)
[2025-01-05 08:32] LABS: TOT PROT 6.5 g/dl (6.4-8.2)
[2025-01-05 08:34] LABS: ALK PHOS 84.0 U/L (45-117)
[2025-01-05 08:35] LABS: GLUCOSE,RANDOM 179.0 mg/dL (74-106)
[2025-01-05 08:36] LABS: CO2 22.0 mmol/L (21-32)
[2025-01-05 08:38] LABS: CREATININE 0.9 mg/dL (0.55-1.3)
[2025-01-05] MEDS ORDERED: VANCOMYCIN 1,000 MG VIAL (RESTRICTED TO ID ONLY) ONE (09:18)
[2025-01-05] MEDS ORDERED: LIDOCAINE HCL 2% (20ML MULTI-DOSE VIAL) ONE (09:19)
[2025-01-05] MEDS ORDERED: BUPIVACAINE HCL/PF 0.5% (5MG/ML) 10 ML VIAL ONE (09:19)
[2025-01-05] MEDS ORDERED: PROPOFOL 20 ML ONE (10:39)
[2025-01-05] MEDS ORDERED: MIDAZOLAM HCL 2 MG/2 ML SINGLE DOSE VIAL ONE (10:40)
[2025-01-05] MEDS ORDERED: SUCCINYLCHOLINE CHLORIDE 200 MG/10 ML SYRINGE ONE (10:40)
[2025-01-05] MEDS: LIDOCAINE HCL 2% (50ML VIAL) NR ONE (10:58)
[2025-01-05] MEDS: BUPIVACAINE HCL/PF 0.5% (5 MG/ML) 30 ML VIAL IJ ONE (10:58)
[2025-01-05] MEDS: PIPERACILLIN/TAZOBACTAM 3.375 GM VIAL IVPB ONE (11:00)
[2025-01-05] MEDS ORDERED: LACTATED RINGERS SOLUTION 1,000 ML IV SCH (12:15)
[2025-01-05] MEDS ORDERED: BISACODYL 5 MG TABLET.DR (FP) PO PRN (12:33)
[2025-01-05] MEDS: LACTATED RINGERS SOLUTION 1,000 ML IV SCH (13:15)
[2025-01-05] MEDS: NIFEdipine E.R. 30 MG TABLET PO SCH (13:38)
[2025-01-05] MEDS: PANTOPRAZOLE 40 MG TABLET PO SCH (13:38)
[2025-01-05] MEDS: PRAMIPEXOLE DIHYDROCHLORIDE 0.25 MG TABLET PO SCH (13:38)
[2025-01-05] MEDS: AMINO ACIDS/PROTEIN HYDROLYS 30 ML LIQUID.PKT PO SCH (13:39)
[2025-01-05] MEDS: POLYETHYLENE GLYCOL (HEALTHYLAX) 3350 17 GM PACKET PO SCH (13:39)
[2025-01-05] MEDS: FAMOTIDINE 20 MG TABLET PO SCH (13:39)
[2025-01-05] MEDS: METHAZOLAMIDE 50 MG TABLET PO SCH (13:40)
[2025-01-05] MEDS: ASPIRIN COATED 81 MG TABLET.EC PO SCH (13:41)
[2025-01-05] MEDS ORDERED: INSULIN ASPART SLIDING SCALE (NOVOLOG) 1 VIAL SQ ONE (13:45)
[2025-01-05] MEDS: BRIMONIDINE TARTRATE 0.2% OPHTHALMIC 5 ML BOTTLE OS SCH (13:49)
[2025-01-05] MEDS: DORZOLAMIDE HCL/TIMOLOL OPHTHALMIC SOLUTION 10 ML BOTTLE OU SCH (13:49)
[2025-01-05] MEDS: TAMSULOSIN HCL 0.4 MG CAP PO SCH (13:50)
[2025-01-05] MEDS: INSULIN ASPART SLIDING SCALE (NOVOLOG) 1 VIAL SQ SCH (13:50)
[2025-01-05] MEDS: INSULIN (NOVOLOG) ASPART 100 UNITS/ML 10ML VIAL SQ SCH (13:50)
[2025-01-05] MEDS: NYSTATIN POWDER 100,000 UNITS/GM - 15 GM TOPICAL POWDER TP SCH (13:51)
[2025-01-05] MEDS: ACETAMINOPHEN 500 MG TABLET (FP) PO PRN (17:33)
[2025-01-05] MEDS: PIPERACILLIN/TAZOB 3.375 GM 3.375 GM in DEXTROSE 5%-WATER - 50 ML IVPB SCH (17:37)
[2025-01-05 17:49] LABS: HEPATITIS B SURF AG NON-MATERN NON-REACTIVE (NONREACTIVE)
[2025-01-05 18:17] LABS: HCV DIAGNOSTIC IN-HOUSE W/RFLX NON-REACTIVE (NONREACTIVE)
[2025-01-05 18:26] LABS: MCHC 29.4 g/dl (32.3-36.5); MEAN CELL VOLUME 90.4 fl (79.0-92.2); MEAN PLT VOLUME 8.8 fl (9.4-12.4); RDW 17.8 % (12.2-16.4)
[2025-01-05] MEDS: ATORVASTATIN CA 40 MG TABLET (FP) PO SCH (21:20)
[2025-01-05 21:23] LABS: HIV INTERPRETATION NEGATIVE (NEGATIVE)
[2025-01-06] MEDS ORDERED: PIPERACILLIN/TAZOBACTAM 3.375 GM VIAL IVPB ONE (02:02)
[2025-01-06] MEDS ORDERED: TAMSULOSIN HCL 0.4 MG CAP PO SCH (08:30)
[2025-01-06 09:08] LABS: MCHC 28.9 g/dl (32.3-36.5); MEAN CELL VOLUME 90.3 fl (79.0-92.2); MEAN PLT VOLUME 9.3 fl (9.4-12.4); RDW 18.0 % (12.2-16.4)
[2025-01-06 09:57] LABS: CO2 23.0 mmol/L (21-32); GLUCOSE,RANDOM 214.0 mg/dL (74-106)
[2025-01-06 10:00] LABS: CREATININE 1.0 mg/dL (0.55-1.3); SGOT/AST 14.0 U/L (15-37); SGPT/ALT 8.0 U/L (13-61)
[2025-01-06 10:01] LABS: TOT PROT 6.1 g/dl (6.4-8.2)
[2025-01-06 10:03] LABS: ALK PHOS 78.0 U/L (45-117)
[2025-01-06] MEDS ORDERED: INSULIN ASPART SLIDING SCALE (NOVOLOG) 1 VIAL SQ ONE (14:07)
[2025-01-06] MEDS: VANCOMYCIN/WATER 1250 MG 1,250 MG/250 ML BAG IVPB SCH (14:21)
[2025-01-07 08:41] LABS: ABSOLUTE IMMATURE GRANULOCYTES 0.13 x10^3/uL (0.0-0.031); BASOPHILS # 0.03 x10^3/uL (0.01-0.08); EOSINOPHIL % 0.5 % (0.8-7.0); EOSINOPHILS # 0.06 x10^3/uL (0.04-0.54); MCHC 30.5 g/dl (32.3-36.5); MEAN CELL VOLUME 88.3 fl (79.0-92.2); MEAN PLT VOLUME 9.2 fl (9.4-12.4); MONOCYTE # 0.83 x10^3/uL (0.30-0.82); MONOCYTE % 7.5 % (5.3-12.2); RDW 18.0 % (12.2-16.4)
[2025-01-07] MEDS: MULTIVITAMINS (DAILY MVI) TABLET (FP) PO SCH (09:28)
[2025-01-07 10:12] LABS: IRON SERUM 12.0 ug/dL (50-175)
[2025-01-07] MEDS ORDERED: VANCOMYCIN 1,000 MG in DEXTROSE 5%-WATER - 250 ML IVPB SCH (10:30)
[2025-01-07 13:19] LABS: CO2 23.0 mmol/L (21-32); GLUCOSE,RANDOM 120.0 mg/dL (74-106)
[2025-01-07 13:22] LABS: SGOT/AST 13.0 U/L (15-37); SGPT/ALT 8.0 U/L (13-61)
[2025-01-07 13:23] LABS: CREATININE 1.3 mg/dL (0.55-1.3)
[2025-01-07 13:24] LABS: TOT PROT 6.0 g/dl (6.4-8.2)
[2025-01-07 13:25] LABS: ALK PHOS 83.0 U/L (45-117)
[2025-01-07] MEDS: MAGNESIUM OXIDE 400 MG TABLET (FP) PO ONE (15:08)
[2025-01-07] MEDS: IRON SUCROSE INJECTION 100 MG in SODIUM CHLORIDE 95 ML IVPB ONE (15:09)
[2025-01-07] MEDS ORDERED: INSULIN ASPART SLIDING SCALE (NOVOLOG) 1 VIAL SQ ONE (17:28)
[2025-01-08 08:36] LABS: ABSOLUTE IMMATURE GRANULOCYTES 0.09 x10^3/uL (0.0-0.031); BASOPHILS # 0.03 x10^3/uL (0.01-0.08); EOSINOPHIL % 0.7 % (0.8-7.0); EOSINOPHILS # 0.06 x10^3/uL (0.04-0.54); MCHC 28.7 g/dl (32.3-36.5); MEAN CELL VOLUME 90.8 fl (79.0-92.2); MEAN PLT VOLUME 9.0 fl (9.4-12.4); MONOCYTE # 0.57 x10^3/uL (0.30-0.82); MONOCYTE % 6.3 % (5.3-12.2); RDW 17.8 % (12.2-16.4)
[2025-01-08 09:10] LABS: CO2 21.0 mmol/L (21-32); GLUCOSE,RANDOM 151.0 mg/dL (74-106)
[2025-01-08 09:11] LABS: CREATININE 1.0 mg/dL (0.55-1.3)
[2025-01-08 09:13] LABS: ALK PHOS 85.0 U/L (45-117); SGOT/AST 19.0 U/L (15-37); SGPT/ALT 8.0 U/L (13-61); TOT PROT 6.2 g/dl (6.4-8.2)
[2025-01-08] MEDS: POTASSIUM CHLORIDE ORAL LIQUID 20 MEQ/15 ML PO ONE (15:13)
[2025-01-08 21:51] VITALS: TEMP 98.1
[2025-01-09 08:41] LABS: MCHC 30.3 g/dl (32.3-36.5); MEAN CELL VOLUME 89.4 fl (79.0-92.2); MEAN PLT VOLUME 9.4 fl (9.4-12.4); RDW 16.9 % (12.2-16.4)
[2025-01-09 10:25] VITALS: BP 115/51; PULSE 65; RESP 20
[2025-01-09 11:16] LABS: CO2 20.0 mmol/L (21-32); GLUCOSE,RANDOM 161.0 mg/dL (74-106)
[2025-01-09 11:18] LABS: CREATININE 1.0 mg/dL (0.55-1.3); SGOT/AST 44.0 U/L (15-37); SGPT/ALT 20.0 U/L (13-61)
[2025-01-09 11:21] LABS: TOT PROT 5.9 g/dl (6.4-8.2)
[2025-01-09 11:22] LABS: ALK PHOS 90.0 U/L (45-117)
[2025-01-09] MEDS ORDERED: INSULIN ASPART SLIDING SCALE (NOVOLOG) 1 VIAL SQ ONE (12:08)
== END 2025-01-09 12:40 | DRG 475 ==
LOC: JER 14:33 → JERBED 16:20 → J8W 22:09
PROVIDERS: ADMIT Internal Medicine; ATTEND Nurse Practitioner Family
PROC: 0Y6M0Z0 Detachment at Right Foot, Complete, Open Approach (ICD-10-PCS; principal; 2025-01-05 11:00)
PROC: 02HV33Z Insertion of Infusion Device into Superior Vena Cava, Percutaneous Approach (ICD-10-PCS; 2025-01-08)
PROC: B548ZZA Ultrasonography of Superior Vena Cava, Guidance (ICD-10-PCS; 2025-01-08)
PROC: 30233N1 Transfusion of Nonautologous Red Blood Cells into Peripheral Vein, Percutaneous Approach (ICD-10-PCS; 2025-01-08)
DX: T87.43 Infection of amputation stump, right lower extremity (principal); D62 Acute posthemorrhagic anemia; E11.52 Type 2 diabetes mellitus with diabetic peripheral angiopathy with gangrene; T81.49XA Infection following a procedure, other surgical site, initial encounter; M86.171 Other acute osteomyelitis, right ankle and foot; M86.671 Other chronic osteomyelitis, right ankle and foot; I10 Essential (primary) hypertension; D64.9 Anemia, unspecified; E78.5 Hyperlipidemia, unspecified; I25.10 Atherosclerotic heart disease of native coronary artery without angina pectoris; N40.0 Benign prostatic hyperplasia without lower urinary tract symptoms; E11.69 Type 2 diabetes mellitus with other specified complication; E11.42 Type 2 diabetes mellitus with diabetic polyneuropathy; K21.9 Gastro-esophageal reflux disease without esophagitis; K59.00 Constipation, unspecified; Y83.9 Surgical procedure, unspecified as the cause of abnormal reaction of the patient, or of later complication, without mention of misadventure at the time of the procedure
CPT/HCPCS: 36415; 36430; 36569; 73630-TC-RT-FY; 73701-TC-RT; 73721-RT-TC; 80053; 82550; 82962; 83036; 83540; 83550; 83735; 84100; 85025; 85027; 85610; 85651; 85730; 86140; 86708; 86803; 86850; 86900; 86901; 86922; 87070; 87075; 87205; 87340; 87350; 87389; 87517; 87635; 88305-TC; 88307-TC; 88311-TC; 93922; 93925-TC; 94760; 97116-GP; 97161-GP; 99285-25; G0480; J0878; J1756; P9058

== ENCOUNTER 2025-01-27 12:47 | Inpatient (IN) | payer OTHER, BC ==
[2025-01-27 15:21] LABS: ABSOLUTE IMMATURE GRANULOCYTES 0.11 x10^3/uL (0.0-0.031); BASOPHILS # 0.05 x10^3/uL (0.01-0.08); EOSINOPHIL % 1.3 % (0.8-7.0); EOSINOPHILS # 0.13 x10^3/uL (0.04-0.54); MCHC 29.4 g/dl (32.3-36.5); MEAN CELL VOLUME 90.9 fl (79.0-92.2); MEAN PLT VOLUME 9.4 fl (9.4-12.4); MONOCYTE # 0.64 x10^3/uL (0.30-0.82); MONOCYTE % 6.2 % (5.3-12.2); RDW 17.2 % (12.2-16.4)
[2025-01-27 15:31] LABS: INR 1.11 (0.83-1.09); PROTHROMBIN TIME (PATIENT) 12.1 SEC (9.7-13.0)
[2025-01-27 15:33] LABS: ACTIVATED PTT 32.7 SECONDS (25.2-36.5)
[2025-01-27 15:43] LABS: CO2 24.0 mmol/L (21-32); GLUCOSE,RANDOM 156.0 mg/dL (74-106)
[2025-01-27 15:46] LABS: CREATININE 0.9 mg/dL (0.55-1.3)
[2025-01-27 15:47] LABS: SGOT/AST 25.0 U/L (15-37); SGPT/ALT 10.0 U/L (13-61)
[2025-01-27 15:48] LABS: TOT PROT 7.0 g/dl (6.4-8.2)
[2025-01-27 15:49] LABS: ALK PHOS 104.0 U/L (45-117)
[2025-01-27 16:49] LABS: HIV INTERPRETATION NEGATIVE (NEGATIVE)
[2025-01-27 16:50] LABS: HCV DIAGNOSTIC IN-HOUSE W/RFLX NON-REACTIVE (NONREACTIVE)
[2025-01-27] MEDS ORDERED: ACETAMINOPHEN 1000 MG/100 ML BAG IVPB PRN (20:30)
[2025-01-27] MEDS: NIFEdipine E.R. 30 MG TABLET PO ONE (22:44)
[2025-01-28] MEDS ORDERED: morphine CARPU-JECT 2 MG/1 ML DISP.SYRIN IVPUSH PRN (09:07)
[2025-01-28 09:09] LABS: MCHC 29.6 g/dl (32.3-36.5); MEAN CELL VOLUME 89.4 fl (79.0-92.2); MEAN PLT VOLUME 8.8 fl (9.4-12.4); RDW 17.1 % (12.2-16.4)
[2025-01-28 09:40] LABS: LDL CHOLESTEROL (ONLY SJRH) 78 mg/dL (5-100)
[2025-01-28 10:07] LABS: CO2 26.0 mmol/L (21-32); GLUCOSE,RANDOM 144.0 mg/dL (74-106)
[2025-01-28 10:09] LABS: SGOT/AST 20.0 U/L (15-37); SGPT/ALT 9.0 U/L (13-61)
[2025-01-28 10:10] LABS: CREATININE 0.7 mg/dL (0.55-1.3)
[2025-01-28 10:11] LABS: TOT PROT 6.4 g/dl (6.4-8.2)
[2025-01-28 10:12] LABS: ALK PHOS 97.0 U/L (45-117)
[2025-01-28] MEDS: INSULIN ASPART SLIDING SCALE (NOVOLOG) 1 VIAL SQ SCH (11:44)
[2025-01-28] MEDS: FUROSEMIDE 20 MG TABLET (FP) PO SCH (12:23)
[2025-01-28] MEDS: DORZOLAMIDE HCL/TIMOLOL OPHTHALMIC SOLUTION 10 ML BOTTLE OU SCH ×2 (17:42→21:21)
[2025-01-28] MEDS: PANTOPRAZOLE 40 MG TABLET PO SCH (17:43)
[2025-01-28] MEDS ORDERED: DORZOLAMIDE HCL/TIMOLOL OPHTHALMIC SOLUTION 10 ML BOTTLE OU SCH (21:09)
[2025-01-28] MEDS: PRAMIPEXOLE DIHYDROCHLORIDE 0.25 MG TABLET PO SCH (21:17)
[2025-01-28] MEDS: ACETAMINOPHEN 325 MG TABLET (FP) PO PRN (21:17)
[2025-01-28] MEDS: METHAZOLAMIDE 50 MG TABLET PO SCH (21:20)
[2025-01-28] MEDS: NYSTATIN POWDER 100,000 UNITS/GM - 15 GM TOPICAL POWDER TP SCH (21:21)
[2025-01-28] MEDS: BRIMONIDINE TARTRATE 0.2% OPHTHALMIC 5 ML BOTTLE OS SCH (21:22)
[2025-01-28] MEDS: PILOCARPINE 2% OPHTHALMIC SOLUTION 15 ML BOTTLE OS SCH (21:23)
[2025-01-28] MEDS ORDERED: PILOCARPINE HCL OS SCH (22:00)
[2025-01-28] MEDS ORDERED: ATORVASTATIN CA 40 MG TABLET (FP) PO SCH (22:00)
[2025-01-28] MEDS ORDERED: JENTADUETO PO SCH (22:00)
[2025-01-28] MEDS ORDERED: BRIMONIDINE TARTRATE 0.2% OPHTHALMIC 5 ML BOTTLE OS SCH (22:00)
[2025-01-29] MEDS ORDERED: metFORMIN HCL 500 MG TABLET (FP) PO SCH (07:00)
[2025-01-29] MEDS: TAMSULOSIN HCL 0.4 MG CAP PO SCH (08:36)
[2025-01-29] MEDS ORDERED: REGADENOSON 0.4 MG/5 ML PRE-FILLED SYRINGE IVPUSH ONE (08:56)
[2025-01-29 09:05] LABS: ABSOLUTE IMMATURE GRANULOCYTES 0.09 x10^3/uL (0.0-0.031); BASOPHILS # 0.04 x10^3/uL (0.01-0.08); EOSINOPHIL % 1.6 % (0.8-7.0); EOSINOPHILS # 0.14 x10^3/uL (0.04-0.54); MCHC 28.9 g/dl (32.3-36.5); MEAN CELL VOLUME 90.3 fl (79.0-92.2); MEAN PLT VOLUME 8.8 fl (9.4-12.4); MONOCYTE # 0.74 x10^3/uL (0.30-0.82); MONOCYTE % 8.4 % (5.3-12.2); RDW 17.2 % (12.2-16.4)
[2025-01-29] MEDS ORDERED: ASPIRIN COATED 81 MG TABLET.EC PO SCH (10:00)
[2025-01-29 10:09] LABS: CO2 28.0 mmol/L (21-32); GLUCOSE,RANDOM 182.0 mg/dL (74-106)
[2025-01-29 10:12] LABS: CREATININE 0.8 mg/dL (0.55-1.3); SGOT/AST 26.0 U/L (15-37); SGPT/ALT 11.0 U/L (13-61)
[2025-01-29 10:14] LABS: TOT PROT 6.4 g/dl (6.4-8.2)
[2025-01-29 10:15] LABS: ALK PHOS 90.0 U/L (45-117)
[2025-01-29] MEDS: REGADENOSON 0.4 MG/5 ML PRE-FILLED SYRINGE IVPUSH ONE (10:50)
[2025-01-29] MEDS: ENOXAPARIN NA (PORCINE) 40 MG/0.4 ML DISP.SYRIN SQ SCH (12:40)
[2025-01-29] MEDS: AMINO ACIDS/PROTEIN HYDROLYS 30 ML LIQUID.PKT PO SCH (17:39)
[2025-01-29] MEDS ORDERED: MAGNESIUM SULFATE IN WATER 4 GM/50 ML BAG IVPB ONE (17:59)
[2025-01-29] MEDS: MAGNESIUM 4GM/H20 - 4 GM/100 ML IVPB IVPB ONE (19:53)
[2025-01-29] MEDS ORDERED: INSULIN ASPART SLIDING SCALE (NOVOLOG) 1 VIAL SQ ONE (22:46)
[2025-01-30] MEDS: MULTIVITAMINS THER W-MINERALS COMBO TABLET (FP) PO SCH (09:16)
[2025-01-30 09:50] LABS: MCHC 28.4 g/dl (32.3-36.5); MEAN CELL VOLUME 91.1 fl (79.0-92.2); MEAN PLT VOLUME 8.6 fl (9.4-12.4); RDW 17.1 % (12.2-16.4)
[2025-01-30 10:40] LABS: CO2 27.0 mmol/L (21-32); GLUCOSE,RANDOM 178.0 mg/dL (74-106)
[2025-01-30 10:43] LABS: CREATININE 0.9 mg/dL (0.55-1.3)
[2025-01-30] MEDS: ASPIRIN 81 MG CHEWABLE TABLETS PO SCH (11:13)
[2025-01-30] MEDS: LIDOCAINE 5% TOPICAL PATCH TP ONE (23:57)
[2025-01-31] MEDS: LIDOCAINE PATCH REMOVAL MC ONE (11:28)
[2025-02-01 09:14] LABS: ABSOLUTE IMMATURE GRANULOCYTES 0.08 x10^3/uL (0.0-0.031); BASOPHILS # 0.04 x10^3/uL (0.01-0.08); EOSINOPHIL % 2.3 % (0.8-7.0); EOSINOPHILS # 0.21 x10^3/uL (0.04-0.54); MCHC 28.8 g/dl (32.3-36.5); MEAN CELL VOLUME 90.0 fl (79.0-92.2); MEAN PLT VOLUME 8.7 fl (9.4-12.4); MONOCYTE # 0.69 x10^3/uL (0.30-0.82); MONOCYTE % 7.6 % (5.3-12.2); RDW 16.6 % (12.2-16.4)
[2025-02-01] MEDS: CLOPIDOGREL BISULFATE 75 MG TABLET (FP) PO SCH (10:29)
[2025-02-01 10:58] LABS: SGOT/AST 27.0 U/L (15-37); SGPT/ALT 14.0 U/L (13-61)
[2025-02-01 11:00] LABS: TOT PROT 6.2 g/dl (6.4-8.2)
[2025-02-01 11:01] LABS: ALK PHOS 90.0 U/L (45-117)
[2025-02-03 09:37] LABS: CO2 27.0 mmol/L (21-32); GLUCOSE,RANDOM 230.0 mg/dL (74-106)
[2025-02-03 09:40] LABS: CREATININE 0.9 mg/dL (0.55-1.3)
[2025-02-03 13:19] VITALS: RESP 18
[2025-02-04] MEDS: LISINOPRIL 5 MG TABLET PO SCH (10:55)
[2025-02-04 11:35] VITALS: BP 144/72; PULSE 81; TEMP 98.2
[2025-02-04 13:23] VITALS: BMI 25.5
[2025-02-04] MEDS ORDERED: ASCORBIC ACID 500 MG TABLET (FP) PO SCH (17:00)
== END 2025-02-04 16:59 | DRG 920 ==
LOC: JER 12:47 → JERBED 15:07 → J6S 18:44
PROVIDERS: ATTEND Internal Medicine
DX: T81.31XA Disruption of external operation (surgical) wound, not elsewhere classified, initial encounter (principal); I50.32 Chronic diastolic (congestive) heart failure; M86.671 Other chronic osteomyelitis, right ankle and foot; E11.40 Type 2 diabetes mellitus with diabetic neuropathy, unspecified; E11.51 Type 2 diabetes mellitus with diabetic peripheral angiopathy without gangrene; I10 Essential (primary) hypertension; N40.0 Benign prostatic hyperplasia without lower urinary tract symptoms; E78.5 Hyperlipidemia, unspecified; E11.69 Type 2 diabetes mellitus with other specified complication; I25.10 Atherosclerotic heart disease of native coronary artery without angina pectoris; I11.0 Hypertensive heart disease with heart failure; E83.42 Hypomagnesemia; L89.152 Pressure ulcer of sacral region, stage 2; Y83.9 Surgical procedure, unspecified as the cause of abnormal reaction of the patient, or of later complication, without mention of misadventure at the time of the procedure
CPT/HCPCS: 36415; 71045-TC-FY; 78452-TC; 80048; 80053; 80061; 80076; 82550; 82962; 83735; 83880; 84100; 84439; 84443; 85025; 85027; 85610; 85730; 86803; 86850; 86900; 86901; 87389; 93005; 93010; 93017; 93306-TC; 93926-TC; 99285-25; A9502; J0878; J2785

== ENCOUNTER 2025-03-22 14:15 | Inpatient (IN) | payer OTHER, BC ==
[2025-03-22 15:44] LABS: ABSOLUTE IMMATURE GRANULOCYTES 0.05 x10^3/uL (0.0-0.031); BASOPHILS # 0.03 x10^3/uL (0.01-0.08); EOSINOPHIL % 0.6 % (0.8-7.0); EOSINOPHILS # 0.04 x10^3/uL (0.04-0.54); MCHC 29.0 g/dl (32.3-36.5); MEAN CELL VOLUME 92.9 fl (79.0-92.2); MEAN PLT VOLUME 8.7 fl (9.4-12.4); MONOCYTE # 0.50 x10^3/uL (0.30-0.82); MONOCYTE % 6.9 % (5.3-12.2); RDW 19.0 % (12.2-16.4)
[2025-03-22 15:51] LABS: INR 1.11 (0.83-1.09); PROTHROMBIN TIME (PATIENT) 12.1 SEC (9.7-13.0)
[2025-03-22 15:54] LABS: ACTIVATED PTT 34.0 SECONDS (25.2-36.5)
[2025-03-22 16:09] LABS: GLUCOSE,RANDOM 89 mg/dL (74-106)
[2025-03-22 16:10] LABS: TOT PROT 6.0 g/dl (6.4-8.2)
[2025-03-22 16:11] LABS: CO2 20 mmol/L (21-32)
[2025-03-22 16:12] LABS: ALK PHOS 55 U/L (40-150)
[2025-03-22 16:15] LABS: SGOT/AST 62 U/L (5-34)
[2025-03-22 16:38] LABS: HCV DIAGNOSTIC IN-HOUSE W/RFLX NON-REACTIVE (NONREACTIVE); HIV INTERPRETATION NEGATIVE (NEGATIVE)
[2025-03-22 17:04] LABS: CREATININE 0.78 mg/dL (0.55-1.3); SGPT/ALT < 6 U/L (0-55)
[2025-03-22] MEDS: INSULIN ASPART SLIDING SCALE (NOVOLOG) 1 VIAL SQ SCH (19:49)
[2025-03-22 23:12] VITALS: BMI 23.8
[2025-03-23 09:57] LABS: MCHC 29.2 g/dl (32.3-36.5); MEAN CELL VOLUME 93.0 fl (79.0-92.2); MEAN PLT VOLUME 9.2 fl (9.4-12.4); RDW 19.1 % (12.2-16.4)
[2025-03-23 10:00] LABS: INR 1.12 (0.83-1.09); PROTHROMBIN TIME (PATIENT) 12.3 SEC (9.7-13.0)
[2025-03-23 10:03] LABS: ACTIVATED PTT 33.1 SECONDS (25.2-36.5)
[2025-03-23] MEDS: PANTOPRAZOLE 40 MG TABLET PO SCH (10:53)
[2025-03-23] MEDS: NIFEdipine E.R. 30 MG TABLET PO SCH (10:53)
[2025-03-23] MEDS: PRAMIPEXOLE DIHYDROCHLORIDE 0.25 MG TABLET PO SCH (10:53)
[2025-03-23] MEDS: FERROUS SO4 325 MG TABLET (FP) PO SCH (10:53)
[2025-03-23] MEDS: BRIMONIDINE TARTRATE 0.2% OPHTHALMIC 5 ML BOTTLE OS SCH (10:53)
[2025-03-23] MEDS: PILOCARPINE 1% OPHTHALMIC SOLUTION 15 ML BOTTLE OS SCH (10:54)
[2025-03-23] MEDS: METHAZOLAMIDE 50 MG TABLET PO SCH (10:54)
[2025-03-23] MEDS: NYSTATIN POWDER 100,000 UNITS/GM - 15 GM TOPICAL POWDER TP SCH (10:55)
[2025-03-23 11:29] LABS: GLUCOSE,RANDOM 90 mg/dL (74-106); TOT PROT 6.0 g/dl (6.4-8.2)
[2025-03-23 11:30] LABS: CO2 20 mmol/L (21-32)
[2025-03-23 11:32] LABS: ALK PHOS 52 U/L (40-150)
[2025-03-23 11:34] LABS: SGOT/AST 66 U/L (5-34)
[2025-03-23 11:35] LABS: CREATININE 0.60 mg/dL (0.55-1.3)
[2025-03-23 11:39] LABS: SGPT/ALT < 6 U/L (0-55)
[2025-03-23] MEDS: [UNRECOGNIZED DRUG - OTHER] OU SCH (12:17)
[2025-03-23] MEDS: TIMOLOL OU SCH (12:17)
[2025-03-23] MEDS: DORZOLAMIDE OU SCH (12:17)
[2025-03-23] MEDS: MAGNESIUM SULF 50% (8.12 MEQ/2 ML-1 GM VIAL) IVPB ONE (12:32)
[2025-03-23] MEDS: COLLAGENASE CLOSTRIDIUM HIST. 30 GRAMS TUBE TP SCH (17:00)
[2025-03-23] MEDS: POTASSIUM CHLORIDE TABS 20 MEQ TABLET.ER (FP) PO SCH (23:00)
[2025-03-23] MEDS: HEPARIN NA (PORCINE) 5,000 UNITS/ML 1ML VIAL SQ SCH (23:00)
[2025-03-23] MEDS: TAMSULOSIN HCL 0.4 MG CAP PO SCH (23:00)
[2025-03-23] MEDS: ATORVASTATIN CA 40 MG TABLET (FP) PO SCH (23:01)
[2025-03-24 06:39] LABS: MCHC 29.9 g/dl (32.3-36.5); MEAN CELL VOLUME 91.7 fl (79.0-92.2); MEAN PLT VOLUME 9.3 fl (9.4-12.4); RDW 18.6 % (12.2-16.4)
[2025-03-24 06:42] LABS: INR 1.07 (0.83-1.09); PROTHROMBIN TIME (PATIENT) 11.8 SEC (9.7-13.0)
[2025-03-24 06:45] LABS: ACTIVATED PTT 33.7 SECONDS (25.2-36.5)
[2025-03-24 07:00] LABS: GLUCOSE,RANDOM 116.0 mg/dL (74-106)
[2025-03-24 07:01] LABS: CO2 20.0 mmol/L (21-32)
[2025-03-24 07:06] LABS: CREATININE 0.56 mg/dL (0.55-1.3)
[2025-03-24] MEDS: POTASSIUM CHLORIDE ORAL LIQUID 20 MEQ/15 ML PO ONE (10:12)
[2025-03-24] MEDS ORDERED: MIDAZOLAM HCL 2 MG/2 ML SINGLE DOSE VIAL ONE (12:20)
[2025-03-24] MEDS ORDERED: LIDOCAINE HCL/PF 2% SDV 5ML VIAL ONE (12:20)
[2025-03-24] MEDS ORDERED: PROPOFOL 20 ML ONE (12:20)
[2025-03-24] MEDS ORDERED: DEXAMETHASONE SOD PHOSPHATE 4 MG/1 ML VIAL ONE (13:21)
[2025-03-24] MEDS ORDERED: ONDANSETRON 4 MG/2 ML VIAL ONE (14:16)
[2025-03-24] MEDS ORDERED: KETOROLAC TROMETHAMINE 30 MG/1 ML VIAL ONE (14:16)
[2025-03-24] MEDS ORDERED: ONDANSETRON 4 MG/2 ML VIAL IVPUSH PRN (14:39)
[2025-03-24] MEDS ORDERED: PROMETHAZINE HCL 25 MG/1 ML VIAL IVPB PRN (14:39)
[2025-03-24] MEDS: ACETAMINOPHEN 1000 MG/100 ML BAG IVPB SCH (15:14)
[2025-03-24] MEDS: LACTATED RINGERS SOLUTION 1,000 ML IV SCH (15:20)
[2025-03-24] MEDS ORDERED: HYDROmorphone *PCA* 10MG/50ML DISP.SYRIN ONE (15:52)
[2025-03-24] MEDS: HYDROmorphone *PCA* 10MG/50ML DISP.SYRIN PCA SCH (16:00)
[2025-03-24] MEDS: INSULIN ASPART SLIDING SCALE (NOVOLOG) 1 VIAL SQ SCH (18:40)
[2025-03-24] MEDS: METHAZOLAMIDE 50 MG TABLET PO SCH (22:17)
[2025-03-24] MEDS: POTASSIUM CHLORIDE TABS 20 MEQ TABLET.ER (FP) PO SCH (22:18)
[2025-03-24] MEDS: TAMSULOSIN HCL 0.4 MG CAP PO SCH (22:18)
[2025-03-24] MEDS: ATORVASTATIN CA 40 MG TABLET (FP) PO SCH (22:19)
[2025-03-24] MEDS: PRAMIPEXOLE DIHYDROCHLORIDE 0.25 MG TABLET PO SCH (22:19)
[2025-03-24] MEDS: NYSTATIN POWDER 100,000 UNITS/GM - 15 GM TOPICAL POWDER TP SCH (22:20)
[2025-03-24] MEDS: DORZOLAMIDE OU SCH (22:21)
[2025-03-24] MEDS: BRIMONIDINE TARTRATE 0.2% OPHTHALMIC 5 ML BOTTLE OS SCH (22:21)
[2025-03-24] MEDS: [UNRECOGNIZED DRUG - OTHER] OU SCH (22:21)
[2025-03-24] MEDS: TIMOLOL OU SCH (22:21)
[2025-03-24] MEDS: PILOCARPINE 1% OPHTHALMIC SOLUTION 15 ML BOTTLE OS SCH (22:23)
[2025-03-25 07:12] LABS: MCHC 28.6 g/dl (32.3-36.5); MEAN CELL VOLUME 93.3 fl (79.0-92.2); MEAN PLT VOLUME 9.3 fl (9.4-12.4); RDW 18.5 % (12.2-16.4)
[2025-03-25 07:44] LABS: GLUCOSE,RANDOM 124.0 mg/dL (74-106)
[2025-03-25 07:46] LABS: CO2 22.0 mmol/L (21-32)
[2025-03-25 07:50] LABS: CREATININE 0.7 mg/dL (0.55-1.3)
[2025-03-25] MEDS: NIFEdipine E.R. 30 MG TABLET PO SCH (10:23)
[2025-03-25] MEDS: PANTOPRAZOLE 40 MG TABLET PO SCH (10:23)
[2025-03-25] MEDS: FERROUS SO4 325 MG TABLET (FP) PO SCH (10:23)
[2025-03-25] MEDS: COLLAGENASE CLOSTRIDIUM HIST. 30 GRAMS TUBE TP SCH (10:25)
[2025-03-25] MEDS: LACTATED RINGERS SOLUTION 1,000 ML IV SCH (12:40)
[2025-03-25] MEDS: ONDANSETRON 4 MG/2 ML VIAL IVPUSH PRN (15:35)
[2025-03-26] MEDS: POLYETHYLENE GLYCOL (HEALTHYLAX) 3350 17 GM PACKET PO SCH (09:06)
[2025-03-26] MEDS: LOSARTAN POTASSIUM 25 MG TABLET PO SCH (17:02)
[2025-03-26] MEDS: CLOPIDOGREL BISULFATE 75 MG TABLET (FP) PO SCH (17:02)
[2025-03-26] MEDS: EMPAGLIFLOZIN (JARDIANCE) 10 MG TABLET PO SCH (18:04)
[2025-03-27] MEDS: ACETAMINOPHEN 1000 MG/100 ML BAG IVPB PRN (03:12)
[2025-03-27 07:36] LABS: ABSOLUTE IMMATURE GRANULOCYTES 0.04 x10^3/uL (0.0-0.031); BASOPHILS # 0.02 x10^3/uL (0.01-0.08); EOSINOPHIL % 0.4 % (0.8-7.0); EOSINOPHILS # 0.04 x10^3/uL (0.04-0.54); MCHC 28.4 g/dl (32.3-36.5); MEAN CELL VOLUME 94.6 fl (79.0-92.2); MEAN PLT VOLUME 9.1 fl (9.4-12.4); MONOCYTE # 0.74 x10^3/uL (0.30-0.82); MONOCYTE % 6.5 % (5.3-12.2); RDW 18.6 % (12.2-16.4)
[2025-03-27 08:00] LABS: GLUCOSE,RANDOM 107 mg/dL (74-106); TOT PROT 5.9 g/dl (6.4-8.2)
[2025-03-27 08:01] LABS: CO2 21 mmol/L (21-32)
[2025-03-27 08:03] LABS: ALK PHOS 57 U/L (40-150)
[2025-03-27 08:05] LABS: SGPT/ALT < 6 U/L (0-55)
[2025-03-27 08:06] LABS: CREATININE 0.64 mg/dL (0.55-1.3); SGOT/AST 27 U/L (5-34)
[2025-03-27] MEDS ORDERED: MAGNESIUM SULFATE IN WATER 2 GM/50 ML IVPB IVPB ONE (10:54)
[2025-03-27] MEDS: MAGNESIUM SULFATE IN WATER 2 GM/50 ML IVPB IVPB ONE (11:46)
[2025-03-27] MEDS ORDERED: ACETAMINOPHEN 325 MG TABLET (FP) PO PRN (16:56)
[2025-03-27] MEDS: HEPARIN NA (PORCINE) 5,000 UNITS/ML 1ML VIAL SQ SCH (21:12)
[2025-03-28] MEDS: EMPAGLIFLOZIN (JARDIANCE) 10 MG TABLET PO SCH (07:22)
[2025-03-28 08:57] LABS: MCHC 29.2 g/dl (32.3-36.5); MEAN CELL VOLUME 93.7 fl (79.0-92.2); MEAN PLT VOLUME 9.4 fl (9.4-12.4); RDW 18.2 % (12.2-16.4)
[2025-03-28 09:29] LABS: GLUCOSE,RANDOM 89 mg/dL (74-106)
[2025-03-28 09:30] LABS: TOT PROT 6.0 g/dl (6.4-8.2)
[2025-03-28 09:31] LABS: CO2 18 mmol/L (21-32)
[2025-03-28 09:32] LABS: ALK PHOS 57 U/L (40-150)
[2025-03-28 09:35] LABS: CREATININE 0.64 mg/dL (0.55-1.3); SGOT/AST 22 U/L (5-34); SGPT/ALT < 6 U/L (0-55)
[2025-03-28] MEDS: MAGNESIUM OXIDE 400 MG TABLET (FP) PO SCH (21:27)
[2025-03-29 07:36] LABS: ABSOLUTE IMMATURE GRANULOCYTES 0.08 x10^3/uL (0.0-0.031); BASOPHILS # 0.02 x10^3/uL (0.01-0.08); EOSINOPHIL % 0.8 % (0.8-7.0); EOSINOPHILS # 0.07 x10^3/uL (0.04-0.54); MCHC 29.3 g/dl (32.3-36.5); MEAN CELL VOLUME 93.2 fl (79.0-92.2); MEAN PLT VOLUME 9.2 fl (9.4-12.4); MONOCYTE # 0.72 x10^3/uL (0.30-0.82); MONOCYTE % 7.9 % (5.3-12.2); RDW 18.0 % (12.2-16.4)
[2025-03-29 07:59] LABS: GLUCOSE,RANDOM 119 mg/dL (74-106); TOT PROT 6.2 g/dl (6.4-8.2)
[2025-03-29 08:00] LABS: CO2 19 mmol/L (21-32)
[2025-03-29 08:02] LABS: ALK PHOS 63 U/L (40-150)
[2025-03-29 08:05] LABS: CREATININE 0.57 mg/dL (0.55-1.3); SGOT/AST 25 U/L (5-34); SGPT/ALT < 6 U/L (0-55)
[2025-03-29] MEDS ORDERED: INSULIN ASPART SLIDING SCALE (NOVOLOG) 1 VIAL SQ ONE (11:32)
[2025-03-30] MEDS: AMINO ACIDS/PROTEIN HYDROLYS 30 ML LIQUID.PKT PO SCH (09:58)
[2025-03-30] MEDS: MULTIVITAMINS (DAILY MVI) TABLET (FP) PO SCH (10:01)
[2025-03-30 10:15] VITALS: RESP 20
[2025-03-30 12:58] VITALS: BP 146/67; PULSE 79; TEMP 97.7
== END 2025-03-30 13:17 | DRG 617 ==
LOC: JER 14:15 → JERBED 17:15 → J8W 22:32
PROVIDERS: ADMIT Internal Medicine; ATTEND Nurse Practitioner Acute Care
PROC: 30233N1 Transfusion of Nonautologous Red Blood Cells into Peripheral Vein, Percutaneous Approach (ICD-10-PCS; 2025-03-23)
PROC: 0Y6H0Z3 Detachment at Right Lower Leg, Low, Open Approach (ICD-10-PCS; principal; 2025-03-24 13:00)
DX: E11.69 Type 2 diabetes mellitus with other specified complication (principal); E11.52 Type 2 diabetes mellitus with diabetic peripheral angiopathy with gangrene; I50.32 Chronic diastolic (congestive) heart failure; I25.110 Atherosclerotic heart disease of native coronary artery with unstable angina pectoris; M86.671 Other chronic osteomyelitis, right ankle and foot; M86.9 Osteomyelitis, unspecified; E11.621 Type 2 diabetes mellitus with foot ulcer; L97.519 Non-pressure chronic ulcer of other part of right foot with unspecified severity; I25.10 Atherosclerotic heart disease of native coronary artery without angina pectoris; I11.0 Hypertensive heart disease with heart failure; E78.5 Hyperlipidemia, unspecified; E11.51 Type 2 diabetes mellitus with diabetic peripheral angiopathy without gangrene; I70.201 Unspecified atherosclerosis of native arteries of extremities, right leg; E11.40 Type 2 diabetes mellitus with diabetic neuropathy, unspecified; D64.9 Anemia, unspecified
CPT/HCPCS: 36415; 36430; 71045-TC-FY; 80048; 80053; 82962; 83036; 83735; 84100; 85025; 85027; 85610; 85651; 85730; 86140; 86803; 86850; 86900; 86901; 86922; 87389; 87635; 88307-TC; 88311-TC; 93005; 93010; 94760; 97116-GP; 97161-GP; 99285-25; P9058